=== PATIENT | female | born 1950 | race Caucasian/White ===

== ENCOUNTER → 2020-09-21 08:19 | Outpatient (CLI) | payer MEDICARE, SELFPAY ==
[2020-09-22 01:38] LABS: COVID19 Sendout Not Detected (Not Detect)
== END ==
PROVIDERS: Visit Provider Physician Assistant
DX: Z11.59 Encounter for screening for other viral diseases (principal)
CPT/HCPCS: 87635

== ENCOUNTER 2020-09-24 06:12 | Inpatient (IN) | payer MEDICARE, SELFPAY ==
[2020-09-18 09:43] VITALS: BMI 27.1
[2020-09-24] VITALS (24 sets, daily range): BP systolic 99–131; BP diastolic 56–83; PULSE 93–122; RESP 13–20; TEMP 36.2–37.5; O2SAT 95–99; BMI 25.5
--- NOTE | 2020-09-24 | PATH_ITS ---
[facility] Accession Number: [id number] . 01 Material submitted: . colon - PORTION TRANSVERSE COLON . 01 Clinical history: . LAPAROSCOPICALLY ASSISTED COLECTOMY . 02 Diagnosis: Transverse Colon, Segmental Resection: Segment of colon with tubular adenoma, 0.7 cm in greatest dimension; please see comment. Single diverticulum present. Tubular adenoma free of closest margin by at least 0.7 cm. No evidence of malignancy. MRV 09/26/2020 1338 Local . 02 Comment: The mucosa overlying the area of tattooing consists predominantly of benign colonic mucosa with prominent/redundant mucosal folds. That said, a 0.7 cm tubular adenoma is present within the specimen, and is free of the closest margin by at least 0.7 cm. There is no evidence of high-grade dysplasia or malignancy. . 02 Electronically signed: . Colin Schmidt MD, PhD, Pathologist NPI- [id number] . 01 Gross description: . The specimen is received in formalin, labeled portion transverse colon and consists of a previously opened 4.0 cm in length x 2.5 cm in diameter portion of colon with two stapled margins. The serosa is eddy-pink and focally black and smooth. There is a moderate amount of attached omentum and mesenteric adipose tissue. Opening reveals a 2.0 x 1.5 cm area of black tattooing located 0.5 cm from one stapled margin and 1.0 cm from the opposing stapled margin (blue). The remaining mucosa is eddy-pink with normal mucosal folds. The wall thickness measures 0.2 cm. No lymph nodes are identified within the attached adipose tissue. Medical Insurance Verifier sections are submitted. . A1 - Stapled margin (blue and black), procurement representative perpendicular sections. A2-A5 - Area of tattooing, entirely submitted (with candidate diverticulum in A5). ([id number]) /[facility] 09/25/2020 1618 Local . 02 Pathologist provided ICD-10: D12.3 . 02 CPT . 580677 Performed at: 01 [facility] [address] [id number] MD Cong Quintero MD Phone: [phone] Performed at: 02 [facility] [address] [place] [id number] MD Rosalina Granados MD Phone: [phone]
[2020-09-24] MEDS: LACTATED RINGERS 1,000 ML 42 ML IV ×2 (07:29→09:15)
[2020-09-24] MEDS: INSULIN REGULAR 100 UNIT/ML 3 ML VIAL IV (07:43)
--- NOTE | 2020-09-24 07:44 | PM.PREOP ---
Pre-operative Note COVID-19 COVID-19 status: Negative Result date/Date tested (Pos, Neg/Pending): 09/21/20 Interval Note History & Physical reviewed/Exam performed by Physician: Yes Changes to H&P: Yes H&P completed within 30 days and has changed as indicated here:: glucose preop 254. given insulin
[2020-09-24] MEDS: PIPERACILLIN-TAZO 3.375 GM/50 ML FROZ.PIGGY IV (07:56)
--- NOTE | 2020-09-24 08:54 | SUR.OPER ---
Lithotomy on padded OR bed. [place] Pad Positioner under torso. Head on pillow, arms on padded arm boards <90 degrees abduction. Legs secured in padded yellow fins stirrups.
[2020-09-24] MEDS: BUPIVACAINE 0.5% W/ EPI (PF) 30 ML VIAL INJ (09:02)
--- NOTE | 2020-09-24 09:02 | PM.PROC.1 ---
Procedures Date/Time Date of procedure: 09/24/20 Time of procedure: 08:00 General Procedure description: Thoracic epidural placement for transverse colectomy post-op pain control requested by general surgeon, Dr. Leonard. Patient was put on ASA monitoring. Positioned in sitting position. Given 2mg versed, 50mcg fentanyl. Skin prepped with chlorhexidine and allowed to fully dry. Skin wheal with 1% lidocaine made at T8-9 interspace. Using 18 ga Touhy needle and low resistance saline syringe, epidural space was located at 4cm deep to skin. Catheter threaded easily without parathesias. Catheter placed to 9.5 cm at skin. After negative aspiration, test dose of 3ml 1.5% lidocaine with epi was given, no reaction. Tegaderm used to secure catheter. Procedure was well tolerated.
--- NOTE | 2020-09-24 09:39 | SUR.OPER ---
CBG rechecked at [address] Barber = 147.
--- NOTE | 2020-09-24 10:05 | SUR.OPER ---
CBG recheck at 1005 = 144. Dr. Barber notified.
--- NOTE | 2020-09-24 11:10 | SUR.PHASEI ---
Report called to CORRINE Britt on floor. Pt ready to transfer upstairs
--- NOTE | 2020-09-24 11:13 | SUR.PHASEI ---
150 yellow slightly cloudy urine removed from vega
--- NOTE | 2020-09-24 11:30 | SUR.PHASEI ---
Pt transferred to room 226 in stable condition with no c/o and handoff in room to CORRINE Britt
[2020-09-24] MEDS: LACTATED RINGERS 1,000 ML 125 ML IV ×2 (12:12→19:22)
--- NOTE | 2020-09-24 12:46 | PM.OP.1 ---
Operative Date/Time/Diagnoses Date of procedure: 09/24/20 Time of procedure: 11:06 Pre-op diagnosis: Neoplasm transverse colon biopsy consistent with an adenoma Post-op diagnosis: same Procedure & Clinicians Procedure: Laparoscopic transverse colectomy with colo colo anastomosis Same procedure as scheduled: Yes Indications: Patient with a multiple E recurrence adenoma referred for resection of the portion of the colon containing the adenoma Surgeon: Rodolfo Leonard Web Applications Administrator: Aaron Moctezuma Anesthesia Type: General Operative Notes Findings: Broad-based polyp in the specimen. Inked colon removed. Closure Type: primary Specimen(s): other (Colon) Prosthetic devices, grafts, tissues, transplants, or devices: None Applied: catheter (Epidural catheter and Kwon catheter) Estimated Blood Loss (mL): 15 Blood products transfused: none Procedure in detail: Patient was placed supine on the operating room table and underwent general endotracheal anesthesia. She was placed in low lithotomy with the Kwon insertion. She was prepped and draped in the usual fashion. Small incision was made above the umbilicus and carried down under direct vision in the peritoneal cavity. And thus on cannula was inserted. Two additional ports were placed 1 in left upper abdomen and 1 in the right mid to lower abdomen. The inked colon was apparent on casual visualization and the abdomen. I dissected the gastrocolic omentum from the segment of the transverse colon containing the inked material. The omentum was released inferior in part. This mobilized the colon well enough to bring it toward the umbilicus. Small incision was then made above the umbilicus and a small [place] wound protector inserted. The colon was easily delivered into the wound. A portion of omentum was removed. I chose proximal and distal margins to include the inked portion of the colon. The lesion was actually palpable in the transverse colon. Using a MUNIRA I transected the colon proximal and distal and removed the specimen. It contained the abnormality. A 2 layer anastomosis was then created with an outer layer of seromuscular silk and inner layer of full-thickness 3 0 Vicryl in a classic [place] running suture line. The lumen was palpably patent and there was no leak on testing. The colon was returned to the abdomen and the abdomen irrigated and suctioned free of fluid. The fascia was closed with a running number 0 0 PDS double stranded material and occasional [id number] 0 Vicryl. The wounds were all irrigated. The subcu was closed with interrupted 3 0 Vicryl in the midline incision and the skin was closed running 4 0 Vicryl subcuticular stitch and Steri-Strips. Four 0 Vicryl subcuticular stitches were used to close the remaining 5 mm port sites along with Steri-Strips. Dressing was applied and the patient was awakened and extubated taken to recovery area in good condition. An epidural catheter had been placed prior to the operation for pain control postoperatively. Complications: none Post-operative Condition: stable Disposition: PACU Plan for aftercare: Admit
--- NOTE | 2020-09-24 15:18 | PC.NURSE ---
initial assessment at 1130 upon arrival to floor- epidural intact and cdi/ 6mls q h and pt declining pain- right leg slower to + cms than left but pt able to stand to bsc for bm ( incontinent initiailly) -- at that time epidural drsg appears damp and sero-sang drainage noted- tympanic bt's x 4 tolerating ice chips and sips of liquid- does have order to advance diet as tolerated- lr at 125cc/h - spouse at bedside
[2020-09-24] MEDS: INSULIN ASPART 100 UNIT/ML INSULN PEN SUBCUT (18:29)
[2020-09-24] MEDS: POTASSIUM CHLORIDE 20 MEQ TAB PO (20:26)
[2020-09-24] MEDS: GABAPENTIN 300 MG CAPSULE PO (20:26)
[2020-09-24] MEDS: FENT 2MCG/ML BUPIV 0.125% EPI 200 MCG/100 ML PLAST..BAG 6 MCG EPIDURAL (20:36)
[2020-09-25 00:40] VITALS: BP 105/55; PULSE 77; RESP 16; TEMP 36.8; O2SAT 96
[2020-09-25] MEDS: LACTATED RINGERS 1,000 ML 125 ML IV ×3 (03:09→19:32)
[2020-09-25 04:54] VITALS: BP 95/50; PULSE 73; RESP 16; TEMP 36.7; O2SAT 95
[2020-09-25 05:20] LABS: Basophils Absolute Auto 0 /uL (0-100); Basophils Percent Auto 0.1 % (0-2); Eosinophils Absolute Auto 0 /uL (0-450); Hematocrit 37.8 % (36-46); Hemoglobin 13.3 g/dL (12.0-16.0); Lymphocytes Absolute Auto 1300 /uL (1100-4500); Lymphocytes Percent Auto 14.1 % (25-40); Mean Corpuscular HGB Conc 35.2 % (30-36); Mean Corpuscular Hemoglobin 33.1 PG (26-34); Mean Corpuscular Volume 94.1 fL (80-100); Monocytes Absolute Auto 700 /uL (0-900); Monocytes Percent Auto 7.7 % (3-14); Neutrophils Absolute Auto 7100 /uL (1500-7000); Neutrophils Percent Auto 78.1 % (50-75); Platelet Count 41 X10^3/uL (150-400); Red Blood Cell Count 4.02 X10^6/uL (4.0-5.2); Red Cell Distribution Width 13.6 % (11.6-14.8); White Blood Cell Count 9.1 X10^3/uL (4.5-11.0)
[2020-09-25 05:24] LABS: Alanine Aminotransferase 29 IU/L (<35); Albumin 3.4 g/dL (3.5-5.0); Albumin Globulin Ratio 1.4 (1.0-2.8); Alkaline Phosphatase 41 U/L (38-126); Aspartate Aminotransferase 35 IU/L (14-36); Bilirubin Total 0.6 mg/dL (0.2-1.3); Blood Urea Nitrogen 11 mg/dL (7-17); Calcium 8.8 mg/dL (8.4-10.2); Carbon Dioxide 27 mmol/L (22-32); Chloride 104 mmol/L (98-107); Estimated Glomerular Filt Rate > 60.0 mL/min (>60); Globulin 2.5 g/dL (1.7-4.1); Glucose 189 mg/dL (80-110); HEMOLYSIS < 15 (0-50); Potassium 3.5 mmol/L (3.4-5.1); Sodium 136 mmol/L (137-145); Total Protein 5.9 g/dL (6.3-8.2)
[2020-09-25 05:28] LABS: Add Manual Diff / Slide Review SLIDE REVIEW
[2020-09-25 05:38] LABS: Platelet Estimate Decreased on smear; RBC Morphology Normal Morphology
--- NOTE | 2020-09-25 06:38 | PC.NURSE ---
Shoe Packer Note-Patient dozed intermittently, A/Ox4, a little nervous early in shift, but calm by morning. Fentanyl/bupivacaine epidural infusing at 6ml/hr with CORPORATE STRATEGY ANALYST demand which she did not use. Denies pain, but starting to feel some movement in am. Dermatone T6 on left, T8 on right, can lift both legs. Has been incontinent 4 small-moderate liquid brown stools, tolerating sips water overnight without nausea. 1500ml clear UOP in Kwon. Lowest BP 93/50(66), other VSS, denies lightheadedness.
[2020-09-25 08:00] VITALS: BP 97/55; PULSE 72; RESP 16; TEMP 36.6; O2SAT 97
[2020-09-25] MEDS: INSULIN ASPART 100 UNIT/ML INSULN PEN SUBCUT ×3 (08:55→16:51)
[2020-09-25] MEDS: glipiZIDE XL 5 MG TAB PO (08:57)
[2020-09-25] MEDS: POTASSIUM CHLORIDE 20 MEQ TAB PO ×2 (09:00→21:19)
[2020-09-25] MEDS: GABAPENTIN 300 MG CAPSULE PO ×2 (09:00→21:19)
[2020-09-25] MEDS: TRIAMTERENE/HCTZ 37.5/25 TABLET 1 CAP PO (09:03)
--- NOTE | 2020-09-25 11:52 | CM.DANOTE ---
DCP: Case received, EMR reviewed and met with patient. Introduced self and role. Was able to obtain information from patient regarding he baseline activity status prior to hospitalization. DCP assessment completed with information currently available. Patient is a 69 year old female who admitted yesterday morning to the care of the surgical team. PCP: Dr. Call. Payer: confirmed: Medicare/[employer]. Patient came to the hospital for a surgical procedure. She had a laparoscopic colectomy. Patient has had neoplasm transverse colon biopsy. Met with patient in her room. She is alert and oriented. She was sitting up in her bed. She is independent at baseline. She resides in [facility] with her spouse, Maciel. P: DCP to continue to follow. Patient should be able to discharge home when she is medically stable. Helen Gardner RN/Summer Internship
[2020-09-25 12:00] VITALS: BP 101/62; PULSE 79; RESP 20; TEMP 36.6; O2SAT 99
[2020-09-25] MEDS: FENT 2MCG/ML BUPIV 0.125% EPI 200 MCG/100 ML PLAST..BAG 6 MCG EPIDURAL (13:03)
--- NOTE | 2020-09-25 13:15 | PC.NURSE ---
pt reports having no pain at all- epidural patent at 6ml/h pt incont of stool x 1 and then more on the bsc early in shift- fully bathed and then ambulated entire length of hospital corridor, active bt's - abd incision cdi, vega patent with pale clear urine - LR continues at 125cc/h and pt up in chair since walk - tolerating clear liquids and anxious for increased diet
[2020-09-25 15:40] VITALS: BP 105/57; PULSE 81; RESP 18; TEMP 36.7; O2SAT 97
--- NOTE | 2020-09-25 17:41 | PM.PNPO.1 ---
Subjective Subjective Date Patient Seen: 09/25/20 Time Patient Seen: 17:41 Interval history: The patient feels great. Not having any but the slightest discomfort. Starting to feel things on her abdomen. Epidural remains in place. She has been up walking twice and hopes to get up 1 more time. She has been out of her bed and in a chair r for over 5 hours today. Exam Vital Signs (past 8 hours): - 09/25/20 12:00 09/25/20 15:40 Temperature 97.9 F 98.0 F Pulse Rate 79 81 Respiratory Rate 20 18 Blood Pressure 101/62 105/57 L Pulse Oximetry 99 97 Oxygen Delivery Method Room Air Oxygen Flow Rate 0 Narrative Exam Narrative: Lungs very good effort. Abdomen soft no unusual tenderness no redness dressing is intact Objective Labs Result Diagrams: 09/25/20 04:49 09/25/20 04:49 Labs: Laboratory Results - last 24 hr 09/25/20 09/25/20 04:49 04:49 WBC 9.1 RBC 4.02 Hgb 13.3 Hct 37.8 MCV 94.1 MCH 33.1 MCHC 35.2 RDW 13.6 Plt Count 41 L Neut % (Auto) 78.1 H Lymph % (Auto) 14.1 L [place] % (Auto) 7.7 Eos % (Auto) 0.0 L Baso % (Auto) 0.1 Neut # (Auto) 7100 H Lymph # (Auto) 1300 [place] # (Auto) 700 Eos # (Auto) 0 Baso # (Auto) 0 Platelet Estimate Decreased on smear RBC Morphology Normal morphology Sodium 136 L Potassium 3.5 Chloride 104 Carbon Dioxide 27 BUN 11 Creatinine 0.61 Estimated GFR > 60.0 BUN/Creatinine Ratio 18.0 Glucose 189 H Calcium 8.8 Total Bilirubin 0.6 AST 35 ALT 29 Alkaline Phosphatase 41 Total Protein 5.9 L Albumin 3.4 L Globulin 2.5 Albumin/Globulin Ratio 1.4 Assessment & Plan Post-op Postoperative Procedures: Procedures Operation Date: 09/24/20 07:45 Actual Procedures Side Surgeon p Laparoscopic Tranverse Colon Resection Rodolfo Leonard MD Postoperative status: doing well Postoperative plan narrative: Will advance diet. Encourage out of bed. Deep breathing.
[2020-09-25 21:00] VITALS: BP 103/52; PULSE 77; RESP 18; TEMP 36.7; O2SAT 98
[2020-09-26] VITALS (7 sets, daily range): BP systolic 115–137; BP diastolic 58–68; PULSE 79–94; RESP 16–20; TEMP 35.8–37.3; O2SAT 96–99
[2020-09-26] MEDS: LACTATED RINGERS 1,000 ML 125 ML IV (03:24)
[2020-09-26] MEDS: FENT 2MCG/ML BUPIV 0.125% EPI 200 MCG/100 ML PLAST..BAG 6 MCG EPIDURAL (04:41)
[2020-09-26 08:25] LABS: Add Manual Diff / Slide Review NO; Basophils Absolute Auto 0 /uL (0-100); Basophils Percent Auto 0.6 % (0-2); Eosinophils Absolute Auto 0 /uL (0-450); Eosinophils Percent Auto 0.1 % (2-4); Hematocrit 38.3 % (36-46); Hemoglobin 13.1 g/dL (12.0-16.0); Lymphocytes Absolute Auto 2600 /uL (1100-4500); Lymphocytes Percent Auto 37.9 % (25-40); Mean Corpuscular HGB Conc 34.2 % (30-36); Mean Corpuscular Hemoglobin 32.7 PG (26-34); Mean Corpuscular Volume 95.8 fL (80-100); Monocytes Absolute Auto 500 /uL (0-900); Monocytes Percent Auto 7.2 % (3-14); Neutrophils Absolute Auto 3700 /uL (1500-7000); Neutrophils Percent Auto 54.2 % (50-75); Platelet Count 38 X10^3/uL (150-400); Red Cell Distribution Width 13.8 % (11.6-14.8); White Blood Cell Count 6.9 X10^3/uL (4.5-11.0)
[2020-09-26 08:35] LABS: Alanine Aminotransferase 27 IU/L (<35); Albumin 3.5 g/dL (3.5-5.0); Albumin Globulin Ratio 1.4 (1.0-2.8); Alkaline Phosphatase 45 U/L (38-126); Aspartate Aminotransferase 39 IU/L (14-36); BUN Creatinine Ratio 15.8 (6-22); Bilirubin Total 0.6 mg/dL (0.2-1.3); Blood Urea Nitrogen 9 mg/dL (7-17); Calcium 8.9 mg/dL (8.4-10.2); Carbon Dioxide 34 mmol/L (22-32); Chloride 102 mmol/L (98-107); Estimated Glomerular Filt Rate > 60.0 mL/min (>60); Globulin 2.5 g/dL (1.7-4.1); Glucose 105 mg/dL (80-110); HEMOLYSIS < 15 (0-50); Potassium 3.4 mmol/L (3.4-5.1); Sodium 137 mmol/L (137-145)
[2020-09-26] MEDS: glipiZIDE 5 MG TABLET PO ×2 (08:43→16:41)
[2020-09-26] MEDS: GABAPENTIN 300 MG CAPSULE PO ×2 (08:51→20:24)
[2020-09-26] MEDS: TRIAMTERENE/HCTZ 37.5/25 TABLET 1 CAP PO (08:52)
[2020-09-26] MEDS: POTASSIUM CHLORIDE 20 MEQ TAB PO ×2 (08:52→20:24)
[2020-09-26 09:01] LABS: Anisocytosis 1+
--- NOTE | 2020-09-26 14:14 | P.PN_ITS ---
Subjective Subjective Date Patient Seen: 09/26/20 Time Patient Seen: 14:14 Interval history: The patient feels very well. She has been having some bowel movements. Passing some flatus. Tolerating p.o. thus far. Exam Vital Signs (past 8 hours): - 09/26/20 08:00 09/26/20 12:00 Temperature 97.5 F L 98.0 F Pulse Rate 87 79 Respiratory Rate 16 20 Blood Pressure 126/61 116/58 L Pulse Oximetry 98 96 Oxygen Delivery Method Room Air Oxygen Flow Rate 0 Narrative Exam Narrative: Lungs are clear to auscultation. No rales or rhonchi heart regular rate and rhythm without murmur gallop abdomen is scaphoid soft nontender. Incisions are intact. No cellulitis. Objective Labs Result Diagrams: 09/26/20 08:04 09/26/20 08:04 Labs: Laboratory Results - last 24 hr 09/26/20 09/26/20 08:04 08:04 WBC 6.9 RBC 4.00 Hgb 13.1 Hct 38.3 MCV 95.8 MCH 32.7 MCHC 34.2 RDW 13.8 Plt Count 38 L Neut % (Auto) 54.2 D Lymph % (Auto) 37.9 D [place] % (Auto) 7.2 Eos % (Auto) 0.1 L Baso % (Auto) 0.6 Neut # (Auto) 3700 Lymph # (Auto) 2600 [place] # (Auto) 500 Eos # (Auto) 0 Baso # (Auto) 0 RBC Morphology Not Reportable Anisocytosis 1+ H Sodium 137 Potassium 3.4 Chloride 102 Carbon Dioxide 34 H BUN 9 Creatinine 0.57 Estimated GFR > 60.0 BUN/Creatinine Ratio 15.8 Glucose 105 Calcium 8.9 Total Bilirubin 0.6 AST 39 H ALT 27 Alkaline Phosphatase 45 Total Protein 6.0 L Albumin 3.5 Globulin 2.5 Albumin/Globulin Ratio 1.4 Assessment & Plan Post-op Postoperative Procedures: Procedures Operation Date: 09/24/20 07:45 Actual Procedures Side Surgeon p Laparoscopic Tranverse Colon Resection Rodolfo Leonard MD Postoperative status narrative: The patient is doing very well thus far. I would like to get her epidural and Kwon catheter out. This will improve her ambulation. Will allow her to shower. Patient was noted to be thrombocytopenic. This was [place] [address]. Repeat today is 38,000. I contacted the patient's primary care provider office and they provided me with her most recent CBC. She apparently has a chronic thrombocytopenia. [place] [address]. The cause is uncertain. I talked to her about the two broad categories of sequestration by her body verses lack of production. Postoperative plan narrative: DC epidural and thus then the Kwon. Back off on her IV fluids. Hold DVT prophylaxis due to thrombocytopenia. Refer to hematology once discharged as I suspect she will need a bone marrow biopsy. Hold all anti-platelet agents/ NSAIA.
--- NOTE | 2020-09-26 14:16 | PC.NURSE ---
AM shift Pt is reporting minimal pain to ABD 2/10 with movement. Vega patient with clear yellow urine. Epidural infusing at 6mls/hr with demand dosing available but not used at all this shift. Pt is eager to get vega and cath out to improve on ambulation CBG AC HS, no nausea or discomfort this shift. Up to BSC 1PA, liquid stooling x2. Flatus + Advancing diet as tolerated. Ambulating in hallway x2 this shift.
[2020-09-26] MEDS: INSULIN ASPART 100 UNIT/ML INSULN PEN SUBCUT ×2 (17:18→20:32)
[2020-09-26] MEDS: OXYCODONE/ACETAMINOPHEN 5/325 TABLET 2 TAB PO (17:23)
[2020-09-26] MEDS: DOCUSATE 100 MG CAPSULE PO (20:24)
[2020-09-26] MEDS: ACETAMINOPHEN 325 MG TABLET 650 MG PO (20:25)
[2020-09-26] MEDS: SENNOSIDES 8.6 MG TABLET 17.2 MG PO (20:25)
[2020-09-27] VITALS (8 sets, daily range): BP systolic 120–140; BP diastolic 61–78; PULSE 79–99; RESP 16–20; TEMP 35.9–36.5; O2SAT 95–97
[2020-09-27] MEDS: OXYCODONE/ACETAMINOPHEN 5/325 TABLET 2 TAB PO ×3 (02:46→16:20)
--- NOTE | 2020-09-27 06:05 | PC.NURSE ---
Pain well controlled on PO medication. Tolerating full liquid diet. Slept well overnight. Report to CORRINE Ribeiro. Patient transferred to room 202 in [facility].
--- NOTE | 2020-09-27 06:44 | PC.NURSE ---
Patient had a shower, new dressing applied to abdomen, island barrier.
[2020-09-27] MEDS: ACETAMINOPHEN 325 MG TABLET 650 MG PO ×2 (07:29→23:46)
[2020-09-27] MEDS: glipiZIDE 5 MG TABLET PO ×2 (07:30→16:16)
[2020-09-27] MEDS: POTASSIUM CHLORIDE 20 MEQ TAB PO ×2 (09:31→21:05)
[2020-09-27] MEDS: GABAPENTIN 300 MG CAPSULE PO ×2 (09:31→21:05)
[2020-09-27] MEDS: DOCUSATE 100 MG CAPSULE PO ×2 (09:32→21:05)
[2020-09-27] MEDS: TRIAMTERENE/HCTZ 37.5/25 TABLET 1 CAP PO (09:37)
[2020-09-27] MEDS: INSULIN ASPART 100 UNIT/ML INSULN PEN SUBCUT ×2 (12:25→16:55)
--- NOTE | 2020-09-27 14:30 | DI.RAD.S_ITS ---
PROCEDURE: XR ACUTE ABDOMEN SERIES INDICATIONS: post colon resection transverse. assess bowel gas pattern TECHNIQUE: One view chest and two views of the abdomen were acquired. COMPARISON: None. FINDINGS: Surgical changes and devices: None. Chest: Lungs are clear. The cardiac contours are within normal limits. The aorta demonstrates calcification and tortuosity. No pleural effusions. No pneumoperitoneum. Abdomen: Bowel gas pattern is normal. A calcified uterine fibroid can be seen. Visualized solid organ contours appear normal. Bones: No suspicious bony lesions. Age-appropriate bony degenerative changes are seen. IMPRESSION: A nonobstructive bowel gas pattern is seen. If clinically appropriate, please consider a repeat plain film study or a dedicated CT of the abdomen and pelvis, if the patient's symptoms persist or worsen. Dictated by: Marck Armstrong M.D. on 09/27/2020 at 15:35 Approved by: Marck Armstrong M.D. on 09/27/2020 at 15:36
[2020-09-27] MEDS: BISACODYL 10 MG SUPP PR (16:16)
[2020-09-27] MEDS: METOCLOPRAMIDE 10 MG/2 ML INJ IV (18:13)
[2020-09-27] MEDS: SENNOSIDES 8.6 MG TABLET 17.2 MG PO (21:05)
--- NOTE | 2020-09-27 21:13 | PM.PNPO.1 ---
Subjective Subjective Date Patient Seen: 09/27/20 Time Patient Seen: 12:00 Interval history: The patient is a woman who had a transverse colon resection with primary anastomosis. She has had multiple small bowel movements but nothing large. She is passing flatus. She feels fine. Exam Vital Signs (past 8 hours): - 09/27/20 16:07 09/27/20 19:47 Temperature 97.4 F L 97.7 F Pulse Rate 84 99 H Respiratory Rate 18 16 Blood Pressure 136/76 122/77 Pulse Oximetry 97 95 Oxygen Delivery Method Room Air Oxygen Flow Rate 0 Narrative Exam Narrative: No apparent distress. Lungs are clear to auscultation. No rales or rhonchi. Heart regular rate and rhythm without murmur gallop. Abdomen is little distended in the upper abdomen. Otherwise soft. Incisions are intact. No cellulitis. Objective Imaging Abdominal x-ray: My impression: Patient has a fairly normal gas pattern except she has a dilated stomach. The right colon has more gas than the left suggesting there may be some impedance across the anastomosis. However it is not particularly distended. Labs Result Diagrams: 09/26/20 08:04 09/26/20 08:04 Assessment & Plan Post-op Postoperative Procedures: Procedures Operation Date: 09/24/20 07:45 Actual Procedures Side Surgeon p Laparoscopic Tranverse Colon Resection Rodolfo Leonard MD Postoperative status narrative: Will start IV fluids again. Dul co lax suppository. Observe. Postoperative plan narrative: May need to back off on her diet for bowel function does not return. Chronic thrombocytopenia. Will avoid all medications including DVT prophylaxis with medication that might inhibit platelet function or increased risk of bleeding
[2020-09-27] MEDS: LACTATED RINGERS 1,000 ML 84 ML IV (21:36)
--- NOTE | 2020-09-27 22:05 | PC.NURSE ---
Has passed multiple small stools and one medium sized stool on shift.
[2020-09-28 00:03] VITALS: BP 137/76; PULSE 88; RESP 20; TEMP 36.1; O2SAT 95
[2020-09-28 04:14] VITALS: BP 144/84; PULSE 98; RESP 18; TEMP 36.1; O2SAT 95
--- NOTE | 2020-09-28 05:58 | PC.NURSE ---
Patient ambulated in the hallway this shift with a staff member. Did well.
[2020-09-28] MEDS: ACETAMINOPHEN 325 MG TABLET 650 MG PO (06:29)
[2020-09-28] MEDS: glipiZIDE 5 MG TABLET PO (06:30)
[2020-09-28 08:05] VITALS: BP 122/77; PULSE 97; RESP 16; TEMP 36.6; O2SAT 94
[2020-09-28] MEDS: INSULIN ASPART 100 UNIT/ML INSULN PEN SUBCUT (08:14)
[2020-09-28] MEDS: GABAPENTIN 300 MG CAPSULE PO (08:15)
[2020-09-28] MEDS: DOCUSATE 100 MG CAPSULE PO (08:15)
[2020-09-28] MEDS: POTASSIUM CHLORIDE 20 MEQ TAB PO (08:15)
[2020-09-28] MEDS: TRIAMTERENE/HCTZ 37.5/25 TABLET 1 CAP PO (08:15)
[2020-09-28] MEDS: BISACODYL 10 MG SUPP PR (09:14)
--- NOTE | 2020-09-28 11:05 | PC.NURSE ---
Addendum entered by Aashish Olsen R.N. 09/28/20 11:39: SPOUSE PRESENT FOR DC HOME INSTRUCTIONS. PATIENT AND SPOUSE CONFIRM UNDERSTANDING. THEY WILL KEEP F/U APPT SCHEDULED. LEFT BY WC WITH ALL BELONGINGS AND PAPERWORK WITH CERTIFIED OPHTHALMIC MEDICAL TECHNICIAN ESCORT WITHOUT S/SX'S OF DISTRESS. Original Note: DAYSHIFT PATIENT HAD LG SOFT FORMED BM AFTER SUPPOSITORY THIS AM, DENIES ABD PAIN, DENIES N/V. ATE WELL. AMBULATED IN HALLS. EAGER TO DC HOME. SURGEON HAS ROUNDED.
--- NOTE | 2020-09-28 11:18 | PM.DS.1 ---
History of Present Illness History of Present Illness Date Patient Seen: 09/28/20 Time Patient Seen: 11:19 Chief complaint: Laparoscopically Assisted Colectomy Narrative: 69-year-old woman admitted to the hospital for elective laparoscopic assisted transverse colectomy. She has a recurrent adenoma within the transverse colon. Discharge Providers Provider Date of admission: 09/24/20 06:12 Discharge Date: 09/28/20 Primary care physician: Jordan Call MD Consults: 09/24/20 11:40 Consult to Discharge Planning Routine Comment: Discharge provider: Aaron Moctezuma MD Summary Hospital Course Discharge Diagnosis: Laparoscopic colectomy Hospital Course: She underwent a laparoscopic-assisted transverse colectomy 09/24/2020. She recovered from the operation appropriately had return of bowel function and her pain was well controlled. On the date of discharge she has return of bowel function tolerant of a diet her pain is well controlled vital signs within normal limits Status at Discharge Cognitive/behavioral status at discharge: oriented Exam Vital Signs (past 8 hours): - 09/28/20 04:14 09/28/20 08:05 Temperature 96.9 F L 97.9 F Pulse Rate 98 H 97 H Respiratory Rate 18 16 Blood Pressure 144/84 H 122/77 Pulse Oximetry 95 94 Oxygen Delivery Method Room Air Oxygen Flow Rate 0 Narrative Exam Narrative: General adult female alert oriented no acute distress Abdomen midline incision clean dry intact with Steri-Strips appropriately tender to palpation Extremities warm well perfused Objective Labs Result Diagrams: 09/26/20 08:04 09/26/20 08:04 Discharge Plan Discharge Plan Patient Disposition: Home Discharge orders & Medications Prescriptions: New acetaminophen [Tylenol] 325 mg capsule 650 mg PO QID PRN (Reason: pain) Qty: 60 RF: 0 Continued estradiol 0.5 MG tablet 0.25 mg PO DAILY Qty: 0 RF: 0 triamterene-hydrochlorothiazid 37.5-25 mg capsule 1 cap PO DAILY RF: 0 lovastatin 20 mg tablet 20 mg PO DAILY RF: 0 meloxicam 7.5 mg tablet 7.5 mg PO BID RF: 0 glipizide 5 mg tablet 5 mg PO DAILY RF: 0 Centrum Silver Women 8 mg iron-400 mcg-300 mcg tablet 1 tab PO DAILY RF: 0 calcium carbonate [Calcium 500] 500 mg calcium (1,250 mg) tablet 500 mg PO BID RF: 0 medroxyprogesterone 2.5 mg tablet 2.5 mg PO DAILY RF: 0 erythromycin 500 mg tablet 1,000 mg PO TID Qty: 6 RF: 0 neomycin 500 mg tablet 1 gram PO TID Qty: 6 RF: 0 potassium chloride 10 mEq Capsule, Extended Release 20 meq PO BID RF: 0 Follow up/Referrals: Jordan Call MD [Primary Care Provider] - Rodolfo Leonard MD [Physician] - 10/10/20 2:15 pm (please arrive 15 minutes prior to your scheduled appointment time) Diet/Activity/Treatments Diet: Regular Activity: No lifting >20 lbs x 6 weeks. Walking only for exercise for 6 [address] while taking narcotics. Skin/Wound/Dressing Care Report to your healthcare provider any signs of infection, such as:: chills, fever, increased pain, unusual drainage and unusual redness Visit Report/Discharge Packet Instructions: DI for Colectomy, Island Surgeons: Wound Care Visit Report Forms: Patient Portal/API, Stroke Signs & Symptoms Discharge Data Primary Care Provider: Jordan Call
--- NOTE | 2020-09-28 13:16 | CM.DPC ---
DCP: continued: Case received and discussed in Team Rounds. Prior plan for d/c to home when stable for same was noted. A check in now shows that Dr. Moctezuma was here, ok's pt for d/c and she left for home late morning in company of her .
== END 2020-09-28 11:41 | disposition home or self-care (01) | DRG 331 ==
LOC: AC 09:43 → ICU 13:28 → AC 09-28 11:03 → ICU 10-01 11:55
PROVIDERS: Admitting Provider Specialist; PCP Family Medicine; Referring Provider Family Medicine; Visit Provider Specialist
PROC: 0DTE0ZZ Resection of Large Intestine, Open Approach (ICD-10-PCS; principal; 2020-09-24 07:45)
DX: D12.3 Benign neoplasm of transverse colon (principal); D69.6 Thrombocytopenia, unspecified; E11.9 Type 2 diabetes mellitus without complications; Z79.84 Long term (current) use of oral hypoglycemic drugs; I10 Essential (primary) hypertension; Z11.59 Encounter for screening for other viral diseases
CPT/HCPCS: 36415; 44204; 74022; 80053; 82962; 85025; 87635; 87797; J1100; J2250; J2405; J2543; J2704; J2765; J3010

== ENCOUNTER 2024-02-10 07:22 | Day surgery (SDC) | payer MEDICARE, SELFPAY ==
[2020-09-28 11:09] VITALS: BMI 25.5
--- NOTE | 2024-02-10 | PATH_ITS ---
[facility] Accession Number: [id number] No. of containers..01 Tissue . 01 Material submitted: . colon - ASCENDING COLON POLYP . 01 Diagnosis: ASCENDING COLON POLYP: Tubular adenoma. . MRV 02/12/2024 1532 Local . 01 Electronically signed: . Colin Schmidt MD, PhD, Pathologist NPI- [id number] . 01 Gross description: . ASCENDING COLON POLYP: Received in formalin are 2 fragment(s) of eddy, soft tissue measuring 0.2 x 0.2 x 0.2 cm to 0.3 x 0.3 x 0.2 cm submitted entirely in 1 cassette(s) /MARGIE 02/11/2024 1913 Local . 01 Pathologist provided ICD-10: D12.2 . 01 CPT . 499766 Specimen Comment: A courtesy copy of this report has been sent to [phone] Performed at: 01 [facility] [address] [place] [address], [place], [place] [id number] MD Cong Quintero MD Phone: [phone]
[2024-02-10 07:59] VITALS: BP 136/88; PULSE 94; RESP 18; TEMP 36.6; O2SAT 100
[2024-02-10] MEDS: LACTATED RINGERS 1,000 ML 42 ML IV (08:09)
--- NOTE | 2024-02-10 08:34 | PM.HP.1 ---
History of Present Illness History of Present Illness Date Patient Seen: 02/10/24 Chief complaint: Colonoscopy Narrative: History of large colon polyps [facility] Medical History (Updated 09/18/20 @ 10:18 by Daysi Morrissey RN) Skin cancer Bilateral knee pain Arthritis Hx gestational diabetes Diverticulosis HLD (hyperlipidemia) HTN (hypertension) Ganglion cyst of dorsum of right wrist Diabetes Surgical History (Updated 09/18/20 @ 10:18 by Daysi Morrissey RN) Hx of dilation and curettage Hx of tonsillectomy Hx of arthroscopy of right knee S/P right unicompartmental knee replacement Hx of right breast biopsy (1998) Hx of rotator cuff surgery (10/09/11) History of bunionectomy Hx of section Family History Father Heart disease Mother Diabetes mellitus Sister Diabetes mellitus Brother Cancer Social History marital status: household members: spouse occupational status: previously employed Smoking Status: Never smoker alcohol intake: current Meds Home Medications and Allergies Home Medications Medication Instructions Recorded Confirmed Type estradiol 0.5 mg tablet 0.25 mg PO DAILY ##0 10/09/11 10/10/20 History calcium carbonate 500 mg calcium 500 mg PO BID 09/05/20 10/10/20 History (1,250 mg) tablet (Calcium 500) erythromycin 500 mg tablet 1,000 mg (2 x 500 mg) PO TID colon 09/05/20 10/10/20 Rx surgery #6 tabs glipizide 5 mg tablet 5 mg PO DAILY 09/05/20 10/10/20 History lovastatin 20 mg tablet 20 mg PO DAILY 09/05/20 10/10/20 History medroxyprogesterone 2.5 mg tablet 2.5 mg PO DAILY 09/05/20 10/10/20 History meloxicam 7.5 mg tablet 7.5 mg PO BID 09/05/20 10/10/20 History begdjghc-jkkn-ojgf 8 mg-folic 400 1 tab PO DAILY 09/05/20 10/10/20 History mcg-K 50 mcg-lutein 300 mcg tablet (Centrum Silver Women) neomycin 500 mg tablet 1 gram (2 x 500 mg) PO TID colon 09/05/20 10/10/20 Rx surgery 3 doses #6 tabs triamterene 37.5 1 cap PO DAILY 09/05/20 10/10/20 History mg-hydrochlorothiazide 25 mg capsule potassium chloride 10 mEq 20 meq PO BID 09/18/20 10/10/20 History capsule,extended release acetaminophen 325 mg capsule 650 mg (2 x 325 mg) PO QID PRN 09/28/20 10/10/20 Rx (Tylenol) pain #60 caps Allergies Allergy/AdvReac Type Severity Reaction Status Date / Time tetanus and diphtheria Allergy Mild SEVERE Verified 10/10/20 14:19 toxoids HEADACHE Exam Vital Signs (past 8 hours): - 02/10/24 07:59 Temperature 98 F Pulse Rate 94 H Respiratory Rate 18 Blood Pressure 136/88 Pulse Oximetry 100 Oxygen Delivery Method Room Air Oxygen Delivery Method Room Air Narrative Exam Narrative: Oropharynx free of lesions Chest clear to auscultation percussion Cardiac exam reveals no S3 or murmur Assessment & Plan Assessment & Plan narrative: History of large colon polyps need for final follow-up colonoscopy. Risks, benefits, alternatives have been explained. History of ITP with platelet count of 43 post infusion yesterday.
--- NOTE | 2024-02-10 08:35 | P.OP.COLON_ITS ---
Operative Date/Time/Diagnoses Date of procedure: 02/10/24 Pre-op diagnosis: See indication and findings Procedure & Clinicians Study performed: Colonoscopy Indications: History of large colon polyps Surgeon: Nell Fairchild Procedure Notes Procedure in detail: After informed consent was obtained the patient was placed in left lateral decubitus position. The video colonoscope was introduced the rectum slowly advanced cecum. Preparation was good. On slow withdrawal mucosa was carefully examined. The scope was removed. The patient tolerated procedure well. Blood loss none Complications none Sedation mac Findings 1. Moderate diverticulosis throughout the entire colon 2. Complex polyp or 2 polyps at the cecal lip. The largest was 1 x 3 and 0.5 cm and the other lobe for smaller 1 was 8 x 15 mm. The largest already had evidence of oozing blood before it was even touched. Please do hot biopsy for ceps to take a biopsy which bled mildly. Using the same forceps to take a hot biopsy still had some oozing but lasts. Removal was not performed. I will discuss these polyps with the patient and her . It may be easiest and safest for her to have a colonic resection for these polyps. If however she really would rather not have surgery performed we can have her see surgery for preprocedure consultation, again arranged for timed infusions, and get platelet infusions just before procedure. Cc Dr. Aviles
[2024-02-10 09:10] VITALS: BP 115/64; PULSE 88; RESP 20; TEMP 36.1; O2SAT 96
[2024-02-10 09:15] VITALS: BP 126/66; PULSE 89; RESP 20; O2SAT 96
[2024-02-10 09:20] VITALS: BP 128/67; PULSE 85; RESP 18; TEMP 36.1; O2SAT 99
[2024-02-10 09:25] VITALS: BP 127/72; PULSE 86; RESP 16; O2SAT 98
== END 2024-02-10 10:24 | disposition home or self-care (01) ==
PROVIDERS: PCP Family Medicine; Referring Provider Internal Medicine Gastroenterology; Visit Provider Internal Medicine Gastroenterology
PROC: 0DJD8ZZ Inspection of Lower Intestinal Tract, Via Natural or Artificial Opening Endoscopic (ICD-10-PCS; CPT 45378; principal; 2024-02-10 08:30)
DX: Z12.11 Encounter for screening for malignant neoplasm of colon (principal); Z86.010 Personal history of colon polyps; K57.30 Diverticulosis of large intestine without perforation or abscess without bleeding; D12.2 Benign neoplasm of ascending colon
CPT/HCPCS: 45384; J2704

== ENCOUNTER → 2024-05-16 09:48 | Outpatient (CLI) | payer MEDICARE, SELFPAY ==
[2020-09-28 11:09] VITALS: BMI 25.5
[2024-05-16 11:21] LABS: Add Manual Diff / Slide Review NO; Basophils Absolute Auto 0 /uL (0-100); Basophils Percent Auto 0.5 % (0-2); Eosinophils Absolute Auto 100 /uL (0-450); Hematocrit 40.9 % (36-46); Hemoglobin 14.2 g/dL (12.0-16.0); Lymphocytes Absolute Auto 1600 /uL (1100-4500); Lymphocytes Percent Auto 31.1 % (25-40); Mean Corpuscular HGB Conc 34.6 % (30-36); Mean Corpuscular Hemoglobin 32.9 PG (26-34); Monocytes Absolute Auto 400 /uL (0-900); Monocytes Percent Auto 8.4 % (3-14); Neutrophils Absolute Auto 3000 /uL (1500-7000); Platelet Count 60 X10^3/uL (150-400); Red Cell Distribution Width 14.9 % (11.6-14.8); White Blood Cell Count 5.2 X10^3/uL (4.5-11.0)
[2024-05-16 11:44] LABS: BUN Creatinine Ratio 27.7 (6-22); Blood Urea Nitrogen 23 mg/dL (7-17); Calcium 10.5 mg/dL (8.4-10.2); Carbon Dioxide 33 mmol/L (22-32); Chloride 99 mmol/L (98-107); Estimated Glomerular Filt Rate > 60 mL/min (>60); Glucose 310 mg/dL (80-110); HEMOLYSIS < 15 (0-50); Potassium 3.4 mmol/L (3.4-5.1); Sodium 136 mmol/L (137-145)
[2024-05-16 11:49] LABS: Hemoglobin A1C% w Est Avg Glu 6.4 % (4.0-6.0)
== END ==
LOC: LAB 09:50
PROVIDERS: PCP Family Medicine; Referring Provider Surgery; Visit Provider Surgery
DX: D49.0 Neoplasm of unspecified behavior of digestive system (principal)
CPT/HCPCS: 36415; 80048; 83036; 85025; 86850; 86900; 86901

== ENCOUNTER → 2024-05-30 09:08 | Outpatient (CLI) | payer MEDICARE, SELFPAY ==
[2020-09-28 11:09] VITALS: BMI 25.5
== END ==
PROVIDERS: PCP Family Medicine; Referring Provider Surgery; Visit Provider Surgery
DX: D69.6 Thrombocytopenia, unspecified (principal)
CPT/HCPCS: 36415; 86850; 86900; 86901

== ENCOUNTER 2024-06-01 06:14 | Inpatient (IN) | payer MEDICARE, SELFPAY ==
[2020-09-28 11:09] VITALS: BMI 25.5
[2024-05-25 08:20] VITALS: BMI 24.4
--- NOTE | 2024-05-31 08:34 | P.HP_ITS ---
History of Present Illness History of Present Illness Date Patient Seen: 06/01/24 Time Patient Seen: 07:45 Chief complaint: Colon Resection Narrative: Ingrid Walsh is a 73-year-old woman PMH ITP, rvm-fhwtdlh-djesldchm diabetes with a 3 cm incompletely resected cecal polyp Recall colonoscopy was performed February 10, [address] Goyo Fairchild which demonstrated a complex 3 cm polyp at the cecum. Biopsy was performed which demonstrates a tubular adenoma but the polyp was not resected result of her thrombocytopenia secondary to ITP. It was suggested that perhaps colectomy would be a safer and easier way of performing the resection. He has a family history of colon cancer her brother. She had a previous transverse colectomy also performed for a large and incompletely removed polyp which resulted in benign pathology. No interval change in health [facility] Medical History History of Mohs micrographic surgery for skin cancer (03/03/19) History of COVID-19 (2021) Thrombocytopenia Idiopathic thrombocytopenic purpura (ITP) Skin cancer Bilateral knee pain Arthritis Hx gestational diabetes Diverticulosis HLD (hyperlipidemia) HTN (hypertension) Ganglion cyst of dorsum of right wrist Diabetes Surgical History Hx of colonoscopy History of colon resection (09/24/20) Hx of dilation and curettage Hx of tonsillectomy Hx of arthroscopy of right knee (10/06/13) 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) Hx of right breast biopsy (1998) Hx of rotator cuff surgery (10/09/11) History of bunionectomy Hx of section Family History Father Heart disease Mother Diabetes mellitus Sister Diabetes mellitus Brother Cancer Social History marital status: household members: spouse occupational status: previously employed Smoking Status: Never smoker alcohol intake: never Meds Home Medications and Allergies Home Medications Medication Instructions Recorded Confirmed Type lovastatin 20 mg tablet 20 mg PO DAILY 09/05/20 06/01/24 History meloxicam 7.5 mg tablet 7.5 mg PO BID 09/05/20 06/01/24 History nsguqlxc-blaj-boia 8 mg-folic 400 1 tab PO DAILY 09/05/20 06/01/24 History mcg-K 50 mcg-lutein 300 mcg tablet (Centrum Silver Women) triamterene 37.5 1 cap PO DAILY 09/05/20 06/01/24 History mg-hydrochlorothiazide 25 mg capsule pioglitazone 30 mg tablet 30 mg PO QPM 02/18/24 06/01/24 History potassium chloride 10 mEq 20 meq PO BID 02/18/24 06/01/24 History capsule,extended release metronidazole 500 mg tablet 1,000 mg (2 x 500 mg) PO .COMPLEX 04/08/24 06/01/24 Rx #6 tabs glipizide 10 mg tablet 10 mg PO DAILY 05/25/24 06/01/24 History Immune Globulin IV QMONTH ITP 06/01/24 History Allergies Allergy/AdvReac Type Severity Reaction Status Date / Time tetanus and diphtheria Allergy Mild SEVERE Verified 06/01/24 06:27 toxoids HEADACHE Exam Narrative Exam Narrative: Gen-Adult woman alert and oriented Chest- Non labored resp Abdomen-Soft non leder Objective Labs 06/01/24 06:50 Labs: Laboratory Results - last 24 hr 05/30/24 09:42 Blood Type A Positive Antibody Screen Negative Assessment & Plan Assessment and plan (1) Colon neoplasm: Status: Acute Assessment & Plan narrative: 73F with ITP and a 3cm incompletely resected cecal polyp here for elective resection. Plt 60k today will proceed with open colectomy and will begin with plt transfusion now. Overview of the operation discussed Operative risks including hemorrhage, infection, anastamotic leak, damage to surrounding structures discussed. She provides her consent to proceed Time-Based Coding :: [TOTAL MINUTES] spent with patient and on the chart (including review of chart, obtaining history, exam, reviewing outside data, placing orders, documenting exam and treatment plan, and counseling patient) on [DATE].
[2024-06-01] VITALS (16 sets, daily range): BP systolic 110–131; BP diastolic 42–83; PULSE 60–107; RESP 14–22; TEMP 35.5–37.1; O2SAT 92–99; BMI 23.1
--- NOTE | 2024-06-01 | PATH_ITS ---
[facility] Accession Number: [id number] No. of containers..02 Tissue . 01 Material submitted: . PART A: liver - LIVER BIOPSY PART B: colon - RIGHT COLON . 01 Diagnosis: A. LIVER, WEDGE BIOPSY: Metastatic colonic adenocarcinoma. See CAP summary below. . B. RIGHT COLON, SEGMENTAL RESECTION: Invasive colonic adenocarcinoma, moderately differentiated. Please see CAP summary data below. . CASE SUMMARY (COLON AND RECTUM):RESECTION version:[id number]_[id number] Procedure: Right hemicolectomy: Tumor site: Hepatic flexure. Histologic type: Adenocarcinoma. Histologic grade: G2, moderately differentiated. Tumor size: Greatest dimension: 4.5 cm. Multiple primary sites: Not applicable. Tumor extent: Invades through muscularis propria into the pericolonic tissue. Macroscopic tumor perforation: Not identified. Lymphatic and/or vascular invasion: Present, large vessel, intramural. Perineural invasion: Present. Tumor budding score: Low (0-4). Type of polyp in which invasive carcinoma arose: None identified. Treatment effect: No known presurgical therapy. . Margin status for invasive carcinoma: All margins negative for invasive carcinoma. Closest margin to invasive carcinoma: Distal margin, 6 mm. Margin status for noninvasive tumor: All margins negative for high-grade dysplasia/intramucosal carcinoma and low-grade dysplasia. . Regional lymph node status: Regional lymph nodes present. Tumor present in regional lymph nodes. Number of lymph nodes with tumor: One. Number of lymph nodes examined: Fourteen. Tumor deposits: Present. Number of tumor deposits: Five. . Distant metastasis: Liver (part A). . pTNM classification (AJCC 8th Edition) Modified classification: Not applicable. pT category: pT3 pN category: pN1a pM category: pM1a . Additional findings: -Adenomas. -Diverticulosis. -Changes consistent with prior procedure. . Special studies: No loss of expression of mismatch repair proteins MLH-1. MSH-2, MSH-6, and PMR-2 by immunohistochemistry. [facility] 06/09/2024 1540 Local . 01 Comment: Dr. Schmidt also reviewed selected slides from this case and agrees with the interpretation. Dr. Granados discussed preliminary findings with Katy in Dr. Moctezuma's office on 06/06/2024 at 11:28 a.m. . 01 Electronically signed: . Rosalina Granados MD, Pathologist NPI- [id number] . 01 Gross description: . A. Received in formalin with two identifiers and liver biopsy, is a eddy irregular soft tissue fragment 1.9 x 1.8 x 1.1 cm. Inked black, and sectioned to reveal a pale eddy, firm cut surface. Submitted entirely in cassettes A1-A2. B. Received fresh and subsequently placed in formalin with two identifiers and right colon, is a right hemicolectomy with ileum measuring 1.2 cm in length by 1.4 cm in diameter, and colon measuring 25.5 cm in length and 5.2 cm in average circumference. The ileal margin is inked blue, the colon margin is inked black, and the mesenteric margin is inked green. The attached appendix measures 3.4 cm in length by 0.5 cm in diameter. The serosa is partially covered by fat but is smooth with no puckering identified. The mucosa is eddy and velvety with three raised eddy polypoid structures ranging from 0.7 x 0.5 x 0.4 cm to 2.2 x 1.0 x 0.6 cm located in the colon just distal to the ileocecal valve. Sectioning reveals the lesion to be confined to the mucosa. A thickened annular fold measures 3.7 x 0.7 cm and is located 1.0 cm from the black-inked distal margin, and is adjacent to a firm area of fat measuring approximately 4.5 cm in greatest dimension. Sectioning reveals no distinct mucosal lesion; however, the wall is slightly thickened with firm fat directly adjacent to the thickened wall. No additional lesions are identified, and the mucosa is eddy and velvety with normal-appearing folds. A light green circular tablet is found within the cecum measuring 1.3 cm diameter and 0.5 cm thick with a faintly legible notation of N32. The castaneda average 0.2 cm thick with several diverticula measuring up to 2.3 cm in greatest dimension with no distinct perforation identified. The appendix has eddy smooth serosa and sectioning reveals a pinpoint patent lumen and castaneda that average 0.2 cm thick with no perforation or lesions identified. Palpation reveals 33 eddy lymph node candidates ranging from 0.2 to 1.1 cm in greatest dimension. Society Editor sections are submitted as follows: B1: Ileal margin en face. B2-B3: Composite firm area perpendicular to distal margin. B4-B5: Composite firm area perpendicular to distal margin. B6-B8: Through the polypoid structures. B9: Unremarkable sections and diverticula. B10: Ileocecal valve. B11: Appendix to include one-half of bisected distal tip and cross-sections. B12: Single bisected lymph node candidate. B13: Single intact lymph node candidate. B14: Two intact lymph node candidates. B15: Two intact lymph node candidates. B16: Single bisected lymph node candidate. B17: Four intact lymph node candidates. B18: Four intact lymph node candidates. B19: Four intact lymph node candidates. B20: Four intact lymph node candidates. B21: Four intact lymph node candidates. B22: Four intact lymph node candidates. ([id number]) The remaining lesion near the distal end measures 2.9 x 1.6 x 1.5 cm. The remaining lesion perpendicular to the distal margin is submitted as follows: B23-B24: Composite section. B25-B26: Composite section. B27-B30: Remaining perpendicular black margin. Additional palpation reveals 26 eddy lymph node candidates ranging from 0.3 to 1.6 cm in greatest dimension. Submitted as follows: B31: Six intact lymph node candidates. B32: Six intact lymph node candidates. B33: Five intact lymph node candidates. B34: Four intact lymph node candidates. B35: Four intact lymph node candidates. B36: A single intact lymph node candidates: ([id number]) /[facility] 06/07/2024 1538 Local . 01 Microscopic: . A. IMMUNOHISTOCHEMISTRY TESTING FOR MISMATCH REPAIR PROTEINS: . MLH1: Intact nuclear expression. MSH2: Intact nuclear expression. MSH6: Intact nuclear expression. PMS2: Intact nuclear expression. Background nonneoplastic tissue/internal control with intact nuclear expression. . INTERPRETATION: No loss of nuclear expression of MMR proteins: low probability of microsatellite instability-high (MSI-H)* Testing performed on block A2. . * There are exceptions to the above IHC interpretations. These results should not be considered in isolation, and clinical correlation with genetic counseling is recommended to assess the need for germline testing. . B. D2-40 stains were performed on blocks B2 and B3 in order to evaluate for lymphovascular invasion and show no evidence of lymphovascular invasion. Control stain showed appropriate reactivity. . B12: Elastic stain was performed to evaluate for vascular invasion and is negative. The control stain showed appropriate reactivity. . B18: Surface decalcification was performed. . * This test was developed and its performance characteristics determined by [employer] [facility]. It has not been cleared or approved by the U.S. Food and Drug Administration. The FDA has determined that such clearance or approval is not necessary. This test is used for clinical purposes. It should not be regarded as investigational or for research. . 01 Pathologist provided ICD-10: C18.3, D12.6 . 01 CPT . 711586, 768062, X03108, E88196, 766454, [id number] Specimen Comment: A courtesy copy of this report has been sent to [phone] Performed at: [address] [place] [facility] [place] [address], [place], [place] [id number] MD Cong Quintero MD Phone: [phone]
[2024-06-01 06:59] LABS: Add Manual Diff / Slide Review NO; Basophils Absolute Auto 0 /uL (0-100); Basophils Percent Auto 0.4 % (0-2); Eosinophils Absolute Auto 0 /uL (0-450); Eosinophils Percent Auto 0.6 % (2-4); Hematocrit 41.7 % (36-46); Hemoglobin 14.5 g/dL (12.0-16.0); Lymphocytes Absolute Auto 1400 /uL (1100-4500); Lymphocytes Percent Auto 21.7 % (25-40); Mean Corpuscular HGB Conc 34.7 % (30-36); Mean Corpuscular Hemoglobin 32.6 PG (26-34); Mean Corpuscular Volume 93.8 fL (80-100); Monocytes Absolute Auto 500 /uL (0-900); Monocytes Percent Auto 8.3 % (3-14); Neutrophils Absolute Auto 4500 /uL (1500-7000); Platelet Count 60 X10^3/uL (150-400); Red Blood Cell Count 4.44 X10^6/uL (4.0-5.2); Red Cell Distribution Width 14.7 % (11.6-14.8); White Blood Cell Count 6.5 X10^3/uL (4.5-11.0)
[2024-06-01] MEDS: LACTATED RINGERS 1,000 ML 42 ML IV (07:00)
[2024-06-01] MEDS: INSULIN REGULAR 100 UNIT/ML 3 ML VIAL IV (07:43)
[2024-06-01] MEDS: PIPERACILLIN/TAZO 3.375 GM in SODIUM CHLORIDE 0.9% 100 ML IV (08:17)
--- NOTE | 2024-06-01 08:37 | SUR.OPER ---
Supine on padded OR bed, head on pillow, arms secured on padded arm boards at <90 degrees abduction, legs uncrossed, safety belt at thigh, tape over blanket over lower legs.
[2024-06-01] MEDS: ACETAMINOPHEN IV 1,000 MG/100 ML VIAL 400 MG IV (08:41)
[2024-06-01] MEDS: BUPIVACAINE LIPOSOME 266 MG/20 ML VIAL INJ (09:34)
[2024-06-01] MEDS: BUPIVACAINE 0.25% W/ EPI (PF) 10 ML VIAL 20 ML INJ (09:35)
--- NOTE | 2024-06-01 10:50 | PM.OP.1 ---
Operative Date/Time/Diagnoses Date of procedure: 06/01/24 Time of procedure: 10:50 Pre-op diagnosis: colon polyp Post-op diagnosis: other (metastatic colon cancer) Procedure & Clinicians Procedure: Colectomy Wedge resection of liver mass Same procedure as scheduled: Yes Indications: 73-year-old woman history of ITP and a family history of colon cancer. She underwent a screening colonoscopy recently which demonstrated a complex of polyps within the right colon measuring a 3 cm in total. Biopsy of the polyp demonstrated a tubular adenoma. With her thrombocytopenia it was felt that she was not a candidate for endoscopic resection and was referred to surgery for colectomy. Surgeon: Aaron Moctezuma [employer] Field Examiner: Meliton Block Anesthesia Type: General Operative Notes Findings: Mass within the proximal colon. Mesenteric lymphadenopathy Numerous hepatic metastases Specimen(s): other (Right colon, liver biopsy) Estimated Blood Loss (mL): 150 Procedure in detail: Patient was brought to the operating room placed supine on the table. Bilateral lower extremity compression devices were applied. General anesthesia was induced and she was intubated with an endotracheal tube. A Kwon catheter was sterilely placed. She was then prepped and draped in sterile fashion and time-out was performed. She received Zosyn prior to skin incision. A midline laparotomy was made. The abdomen was entered atraumatically. Generalized abdominal inspection demonstrated multiple metastases throughout the liver largest being at least several cm. There was a palpable mass within the proximal right colon in addition to mesenteric lymphadenopathy. We decided to proceed with a palliative colectomy such that she would avoid future obstructive colon cancer. The right colon was mobilized off the white line Toldt from the terminal ileum to the hepatic flexure. The sweep of the duodenum was identified and swept posterior out of harm's way. The right ureter was identified by its vermiculation. A window within the mesentery to the terminal ileum was made in the ileum was then divided using the MUNIRA stapler 75 mm blue load. The colon was then divided distal to the hepatic flexure in a similar fashion. The mesentery to the right colon was then divided using the LigaSure. The ileocolic pedicle was skeletonized and doubly ligated with heavy silk suture. The specimen was then passed off the field labeled right colon. This point we took a liver biopsy of the hepatic metastasis from segment 5 using the LigaSure. Specimen was passed off the field as liver biopsy. Using electrocautery and a piece of Surgicel hemostasis was achieved. We then formed a [id number] functional end and anastomosis between the small bowel in the transverse colon. Crotch stitch was placed with silk. An enterotomy and a colotomy were made then the 2 ends were joined together using a 3rd staple firing. The common channel was inspected it was widely patent and hemostatic. The common opening was then closed with a running PDS suture. The suture line was imbricated with silk suture in interrupted fashion and a piece of omentum was placed over the suture line tacked in place. Tested the anastomosis and content moved widely across it there was no evidence of leak it was without tension and well perfused. The anastomosis was then returned to the abdomen. We went back to reinspect the liver and found that it was in fact hemostatic. The the abdomen was copiously irrigated with sterile water and returned clear. The fascia was then closed in a running manner using PDS suture followed by Vicryl suture for the subcutaneous tissue and 4-0 Monocryl for the skin followed by Dermabond. She tolerated the procedure well. She was extubated transferred to recovery in stable condition. A total of 20 mL of Exparel and 40 ml of 0.25% bupivacaine were used for local anesthetic. The sponge and instrument count was correct x2. Complications: none Post-operative Condition: stable Disposition: same day surgery
--- NOTE | 2024-06-01 13:33 | DI.CT.S_ITS ---
PROCEDURE: CT CHEST ABD PEL W CON INDICATIONS: eval metastatic colon cancer sp colectomy TECHNIQUE: After the administration of intravenous contrast, 5 mm thick sections acquired from the lung apices to the symphysis. 5 mm coronal and sagittal reformats were performed, with additional 7 mm MIP reformats through the lungs. For radiation dose reduction, the following was used: automated exposure control, adjustment of mA and/or kV according to patient size. COMPARISON: CT, CT ABDOMEN PELVIS WITH CONTRAST, 11/24/2020, 18:39. CT, CT ABDOMEN PELVIS WITH CONTRAST, 11/12/2020, 17:43. CR, XR ACUTE ABDOMEN SERIES, 09/27/2020, 14:49. FINDINGS: Image quality: Excellent. CHEST: Lower Neck: No enlarged lymph nodes. Thyroid: No thyroid nodules which require sonographic follow up, per consensus guidelines. Axillae: No enlarged lymph nodes. Chest Wall: Unremarkable. Lungs and Pleura: No pneumothorax or pleural effusions. Consolidations. There are dozens of 2-4 mm ground-glass nodular opacities within the lungs bilaterally. No priors are available for comparison. Heart: Heart size is normal. No pericardial effusion. Thoracic Vessels: The aorta and pulmonary arteries demonstrate normal size. Mediastinum and Em: No enlarged lymph nodes. Esophagus: No wall thickening. Mild hiatal hernia. ABDOMEN: Liver: Ill-defined heterogeneous low attenuation enhancing masses within the liver the largest in the dome measuring 5.9 x 4.6 by 3.5 cm. These are new compared to 202. Gallbladder: Dependent stones without wall thickening. Biliary ducts: No biliary dilation. Pancreas: No ductal dilation. Spleen: Size is within normal limits. Adrenal Glands: No adrenal nodules. Kidneys and Ureters: No hydronephrosis. No solid mass. No complex renal cystic lesion which requires follow up. Stomach and Bowel: Colonic diverticula is present without inflammatory change. Partial colectomy changes are present. Minimal scattered fluid is present within the abdomen and dependent pelvis. No organized fluid collection such as abscess. Scattered foci of free air present. Ventral Wall: No significant ventral hernia. Abdominal Nodes: No retroperitoneal or mesenteric adenopathy by size criteria. Vessels: Aorta and inferior vena cava are normal in size. PELVIS: Pelvic Organs: Uterine calcifications likely related to fibroids are present. Bladder: No bladder wall thickening, accounting for underdistention. Pelvic Nodes: No enlarged lymph nodes. Miscellaneous: No inguinal hernias are seen. Bones: No aggressive osseous abnormality. IMPRESSION: Postsurgical partial colectomy changes are present. Scattered areas of mild free fluid are present without organized abscess. Areas of free air present consistent with history of recent colectomy. Recommend correlation of time since surgery. Multiple pulmonary nodules many appearing ground-glass suspicious for metastatic disease. Multiple hepatic lesions new since 2020 most consistent with metastatic disease. Dictated by: Annamaria Campos M.D. on 06/01/2024 at 15:34 Approved by: Annamaria Campos M.D. on 06/01/2024 at 15:51
[2024-06-01] MEDS: ACETAMINOPHEN 325 MG TABLET 650 MG PO (14:42)
[2024-06-01] MEDS: DEXTROSE 5%-0.45% NS 1,000 ML 100 ML IV (14:42)
[2024-06-01 15:27] LABS: Carcinoembryonic Antigen 31.4 ng/mL (0.1-3.0)
--- NOTE | 2024-06-01 16:55 | OT.IP.EVAL ---
Current Diagnoses Neoplasm of unspecified behavior of digestive system (06/01/24) Polyp of colon (06/01/24) Surgery Performed Operation Date: 06/01/24 07:45 Actual Procedures p Open colectomy - Aaron Moctezuma MD Past Medical History (Last Reviewed 06/01/24 @ 07:47 by Aaron Moctezuma MD) Arthritis Bilateral knee pain Diabetes Diverticulosis Ganglion cyst of dorsum of right wrist History of COVID-19 (2021) History of Mohs micrographic surgery for skin cancer (03/03/19) HLD (hyperlipidemia) HTN (hypertension) Hx gestational diabetes Idiopathic thrombocytopenic purpura (ITP) Skin cancer Thrombocytopenia Surgical History (Last Reviewed 06/01/24 @ 07:47 by Aaron Moctezuma MD) History of bunionectomy History of colon resection (09/24/20) Hx of arthroscopy of right knee (10/06/13) Hx of section Hx of colonoscopy Hx of dilation and curettage Hx of right breast biopsy (1998) Hx of rotator cuff surgery (10/09/11) Hx of tonsillectomy 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 Activities of Daily Living and IADL's Independent but needs assist for her hair, clothing due to limited overhead reach LUE mainly. Social History Household Members spouse Living Arrangements House Number of Floors (Floors) 3 or More Floors Number of Stairs To Enter/Railing? Pt has 3 steps with right rail to get into the house and does not have to go upstairs for now. Home Environment Standard Height Toilet,Walk in Shower Additional Social History Comment Pt states considering just sleeping in her recliner chair with foot ottoman initially. M2 OT-IP Current Condition Start: 06/01/24 16:54 Freq: Status: Active Protocol: Document 06/01/24 16:55 [facility] (Rec: 06/01/24 17:11 [facility] [id number]) Occupational Therapy Current Condition Current Condition Evaluation Date 06/01/24 Treatment Diagnosis Colon resection Diagnosis Onset Date 06/01/24 Post Operative Precautions Abdominal Surgery Precautions Log Roll,Lifting Restrictions, Gait Belt above Incisional Area M3 OT- IP Subjective and Pain Start: 06/01/24 16:54 Freq: Status: Active Protocol: Document 06/01/24 16:55 [facility] (Rec: 06/01/24 17:11 [facility] [id number]) OT- Subjective Occupational Therapy Visit Type Type Initial Evaluation Visit Start Time 16:10 Visit Stop Time 16:55 Occupational Therapy Visit Comments Patient Comments Pt wanting to try to get up. Patient/Caregiver Goals TO go home. OT Pain Assessment Pain When Pain Assessed At Rest Pain Present Pain Present Pain Reported Location Abdomen Intensity 2 Scale Used Numeric (0 - 10) M4 OT- IP ADL's Start: 06/01/24 16:54 Freq: Status: Active Protocol: Document 06/01/24 16:55 [facility] (Rec: 06/01/24 17:11 [facility] [id number]) OT [id number] Comments OT Self-Feeding Comments NOt performed. OT ADL-Grooming General Evaluation Grooming Ability Standby Assistance Areas Needing Assistance Retrieving/Set-up of Grooming Items Comments OT Grooming Comments Able to do with FWW while standing in front of the sink. OT ADL-Oral Care General Eval Oral Care Ability Independent Comments Oral Care Comments Educated to hinge at her hips or spit into a cup. OT ADL-Dressing General Eval Upper Body Dressing Ability Maximum Assistance Lower Body Dressing Ability Maximum Assistance Areas Needing Assistance Shoes Comments OT Dressing Comments Pt needing assist to put her robe on, educated to dress her LUE first due to decreased ROM/strength. Pt needing assist for her socks/shoes. Spoke of LB dressing equipment needs but pt insists that her will just assist her. OT ADL-Toileting General Evaluation Toileting Ability Total Assistance Areas Needing Assistance Empty Catheter or Colostomy Comments OT Toileting Comments Kwon in place. Spoke of equipment options for in the future as pt just found out that she has cancer. OT ADL-Bathing Comments OT Bathing Comments Pt at this time would benefit from a shower chair. M5 OT- IP IADL's Start: 06/01/24 16:54 Freq: Status: Active Protocol: Document 06/01/24 16:55 [facility] (Rec: 06/01/24 17:11 [facility] [id number]) OT-Instrumental Activities of Daily Living Home Safety Awareness Awareness of Need for Assistance at Home Good Awareness Ability to Problem Solve Emergency Able to Problem Solve Situations Meal Preparation Meal Preparation Caregiver Provides Assist Program Medical Director Program Medical Director Caregiver Provides Assist M6 OT- IP Functional Cognition Start: 06/01/24 16:54 Freq: Status: Active Protocol: Document 06/01/24 16:55 [facility] (Rec: 06/01/24 17:11 [facility] [id number]) Cognitive Factors Limiting Selfcare Function Cognitive Ability Level of Alertness Alert Patient Orientation Name,Age,Birthday,Month,Date, Year,Day of Week,Place, Situation Attention Span Ability Capable of Focused Attention, Capable of Sustained Attention Ability to Follow Commands Able to Follow One Step Commands Cognitive Comments Cognitive Assessment Comments Pt able to follow commands for log rolling and use of FWW. OT- Vision and Hearing OT- Hearing Assessment OT- Hearing Assessment WFL OT- Vision Assessment Visual Acuity Glasses All The Time Visual Attentiveness WFL Occular Pursuits WFL M7 OT- IP Mobility and Balance Start: 06/01/24 16:54 Freq: Status: Active Protocol: Document 06/01/24 16:55 [facility] (Rec: 06/01/24 17:11 [facility] [id number]) OT- Bed Mobility Assessment Supine to Sit Supine to Sit Assist Minimal Assistance Scooting Scooting to Edge of Bed Standby Assistance OT-Transfer Assessment Sit to and From Stand Sit to and from Stand Contact Guard Assistance Transfers Transfer Ability Standby Assistance Technique Transfer Destination Bed,Chair Transfer Technique Stand Step Pivot Devices Transfer Assistive Devices Gait Belt,Front Wheeled Walker Comments Mobility Comments JULITO to help get her trunk upright from sidelying. CGA to stand and to be able to walk in the room. BP supine 138/70 and sitting 146/61 and no symptoms of being dizzy. Pt is 4'10 and having to use the small FWW for her at this time. Pt states has a high bed at home and would benefit from use of step with handle to get into and out of the bed. Pt states to just sleep in her recliner chair with hieu for now. OT- Balance Assessment Sitting Balance and Reactions Static Sitting Balance Ability Good Dynamic Sitting Balance Ability Good Standing Balance and Reactions Static Standing Balance Ability Good Dynamic Standing Balance Ability Fair M8 OT- IP Objective Assessments Start: 06/01/24 16:54 Freq: Status: Active Protocol: Document 06/01/24 16:55 [facility] (Rec: 06/01/24 17:11 [facility] [id number]) OT Gross Range of Motion Upper Extremity Range of Motion Assessment Bilaterally Impaired OT Strength Upper Extremity Strength Assessment Bilaterally Impaired M9 OT- IP Assessment and Plan Start: 06/01/24 16:54 Freq: Status: Active Protocol: Document 06/01/24 16:55 [facility] (Rec: 06/01/24 17:11 [facility] [id number]) OT Summary Assessment and Plan Potential Rehabilitation Potential Good Analytic Complexity at Evaluation Moderate Summary OT Impairments Pain,Balance,Functional Mobility,Dressing,Toileting, Bathing,Toilet Transfers, Shower Transfers,Activity Tolerance Progress Towards Goals Progressing Toward Goals Assessment Summary Pt MOd complexity and main barriers are pain, decreased activity tolerance, and now needing one person assist for mobility and ADL needs. Pt just finding out today that she has cancer. Pt to go home with 24/7 available assist when medically stable. Able to give and go over information to pt for after abdominal surgery and list for DME needs. Goals Self-Feeding Goal Independent Grooming Goal Independent Dressing Goal Minimal Assistance Toileting Goal Independent Bathing Goal Standby Assistance Toilet Transfer Goal Independent Shower Transfer Goal Standby Assistance Days to Meet Goals 5 Frequency of Treatment Frequency Of Treatment Once a Day Treatment Plan OT Treatment Plan ADL Training,Functional Mobility,Patient/Family Education,Discharge Planning Discharge Recommendations OT Discharge Recommendations Home with 24/7 Assist Available Home Equipment Needs pending progress- small FWW, shower chair Transportation Needs at Discharge Private Vehicle
--- NOTE | 2024-06-01 17:02 | PT.IIE ---
Current Diagnoses Neoplasm of unspecified behavior of digestive system (06/01/24) Polyp of colon (06/01/24) Surgery Performed Operation Date: 06/01/24 07:45 Actual Procedures p Open colectomy - Aaron Moctezuma MD Surgical History (Last Reviewed 06/01/24 @ 07:47 by Aaron Moctezuma MD) History of bunionectomy History of colon resection (09/24/20) Hx of arthroscopy of right knee (10/06/13) Hx of section Hx of colonoscopy Hx of dilation and curettage Hx of right breast biopsy (1998) Hx of rotator cuff surgery (10/09/11) Hx of tonsillectomy 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) Medical History (Last Reviewed 06/01/24 @ 07:47 by Aaron Moctezuma MD) Arthritis Bilateral knee pain Diabetes Diverticulosis Ganglion cyst of dorsum of right wrist History of COVID-19 (2021) History of Mohs micrographic surgery for skin cancer (03/03/19) HLD (hyperlipidemia) HTN (hypertension) Hx gestational diabetes Idiopathic thrombocytopenic purpura (ITP) Skin cancer Thrombocytopenia Physical Therapy Inpatient Evaluation/Re-Eval M1 PT/OT-IP Prior Functional Status Start: 06/01/24 17:43 Freq: NEEDED Status: Active Protocol: Document 06/01/24 17:02 AB (Rec: 06/01/24 18:05 AB [id number]) Medical Review Prior Functional Status Medical History Reviewed Yes Communication able to make needs known Mobility and Gait pt stated that she was independent with all mobilities and ambulation without AD Activities of Daily Living and IADL's per OT note: Independent but needs assist for her hair, clothing due to limited overhead reach LUE mainly. Social History Household Members spouse Living Arrangements House Number of Floors (Floors) 3 or More Floors Number of Stairs To Enter/Railing? 3 steps R rail ascending to enter the [facility] Environment Standard Height Toilet,Walk in Shower Home Equipment Straight Cane Additional Social History Comment pt has a high adjustable bed at home; pt plans to sleep on a recliner chair with leg support/[place] M2 PT-IP Current Condition Start: 06/01/24 17:43 Freq: NEEDED Status: Active Protocol: Document 06/01/24 17:02 AB (Rec: 06/01/24 18:05 [id number]) Physical Therapy Current Condition Current Condition Evaluation Date 06/01/24 Treatment Diagnosis colon CA with mets; s/p colectomy; difficulty in walking Onset Date 06/01/24 M3 PT-IP Subjective Start: 06/01/24 17:43 Freq: NEEDED Status: Active Protocol: Document 06/01/24 17:02 AB (Rec: 06/01/24 18:05 [id number]) Subjective Physical Therapy Visit Type Type Initial Evaluation Visit Start Time 17:02 Visit Stop Time 15:45 Number of DIESEL MAINTENANCE TECHNICIAN Visits 0 Physical Therapy Visit Comments Patient Comments agreeable to do PT Therapy Pain Assessment Pain When Pain Assessed At Rest Pain Present Pain Present Pain Reported Location Abdomen Intensity 2 Scale Used Numeric (0 - 10) Pain Behaviors Guarding Pain Management Techniques Modification of Treatment,Re- positioning,Timing of Activity with Medications M4 PT-IP Mobility and Gait Start: 06/01/24 17:43 Freq: NEEDED Status: Active Protocol: Document 06/01/24 17:02 AB (Rec: 06/01/24 18:05 [id number]) PT-Bed Mobility Assessment Rolling Type of Rolling Log Rolling Level of Assist Minimal Assistance Supine to Sit Supine to Sit Bedrails Sit to Supine Sit to Supine Minimal Assistance,Bedrails PT-Transfer Assessment Sit to and From Stand Sit to and from Stand Minimal Assistance,1 Person Assistance,Use of Upper Extremities Equipment Transfer Assistive Device Gait Belt,Front Wheeled Walker Orthotic/Prosthetic Devices or Brace: Yes Transfers Transfer Destination Bed Transfer Technique ambulated Transfer Ability Level of Assist Minimal Assistance,1 Person Assistance,Use of Upper Extremities Comments Mobility Comments pt sitting on the chair and spouse in room. obtained PLOF and home set up from pt and spouse. reviewed abdominal precautions and log roll bed mobility with pt and spouse. BP in sittin/83. pt completed sit to stand min A and cues. pt ambulated in room using FWW ~ 20 ft min A. presents with slow paced gait with decrease LE elevation and step length. pt sat on EOB and requested to just stay in bed. pt stated that she is tired. pt completed log roll sit to supine min A and cues for techniques. positioned pt in bed. call light and table placed next to pt. Left pt with spouse in room. Gait Assessment Gait Gait Assistance Required: Minimum Assistance Distance (Feet) 20 Able to Maintain Weight Bearing Status Yes During Gait Assistive Devices Assistive Device Gait Belt,Front Wheeled Walker Orthotic/Prosthetic Devices or Brace: Yes Gait Deviations General Gait Pattern Decreased Stride Length, Decreased Feet Clearance,Step- to Gait Factors Limiting Gait Function Factors Limiting Gait Function Decreased Activity Tolerance, Decreased Strength,Limited Range of Motion,Pain,Poor Balance,Poor Safety Awareness PT-Balance Assessment Sitting Balance and Reactions Static Sitting Balance Ability Good Dynamic Sitting Balance Ability Good Standing Balance and Reactions Static Standing Balance Ability Fair Dynamic Standing Balance Ability Fair Device Used FWW M5 PT-IP Objective Assessments Start: 06/01/24 17:43 Freq: NEEDED Status: Active Protocol: Document 06/01/24 17:02 AB (Rec: 06/01/24 18:05 [id number]) Orientation Orientation/Cognition Level of Alertness Alert Orientation Name,Place,Situation Language Function Ability No Deficits Noted Safety Awareness Decreased Safety Awareness Memory Description Short Term Impaired Gross Range of Motion Lower Extremity ROM Assessment Within Functional Limits Strength Lower Extremity Strength Assessment Within Functional Limits Coordination Assessment Gross Coordination Gross Coordination WNL Sensation Assessment Sensation Gross Sensation WNL Muscle Tone Muscle Tone WNL Yes M6 PT-IP Treatment Start: 06/01/24 17:43 Freq: NEEDED Status: Active Protocol: Document 06/01/24 17:02 AB (Rec: 06/01/24 18:05 AB [id number]) Physical Therapy Treatment Education Education Provided Precautions,Safety M7 PT-IP Assessment and Plan Start: 06/01/24 17:43 Freq: NEEDED Status: Active Protocol: Document 06/01/24 17:02 AB (Rec: 06/01/24 18:05 [id number]) PT Summary Assessment and Plan Potential Rehabilitation Potential Fair Status of Condition at Evaluation Evolving Summary Impairments Pain,ROM,Strength,Balance, Coordination,Sensation,Tone, Cognition,Bed Mobility, Transfers,Gait,Activity Tolerance Assessment Summary pt is a 73 y/o F s/p colectomy POD 0. pt with dx of colon CA with mets. pt requiring min A with bed mobility , transfers and ambulation using FWW. pt with decrease activity tolerance and only ambulated ~ 20 ft using FWW min A. pt plans to go home and spouse to assist. caregiver training will be conducted when appropriate as well as stair climbing training since pt has 3 steps to enter their house. will continue to assess progress. Goals Bed Mobility Goal Independent Transfer Goal Independent,Front Wheeled Walker Gait Goal Independent,Front Wheel Walker Gait Distance 200 Other Goals improve transfers and ambulation using LRAD/without AD 250 ft mod I up/down 3 steps R rail ascending SBA Days to Meet Goals 10 Frequency of Treatment Frequency Of Treatment Once a Day Treatment Plan Physical Therapy Treatment Plan Bed Mobility Training,Transfer Training,Gait Training, Therapeutic Exercise,Balance Retraining,Post Op Education, Discharge Planning,Hot or Cold Pack,Neuromuscular Re-ed, Coordination Retraining,Manual Therapy Precautions Abdominal Surgery Precautions Log Roll,Lifting Restrictions, Gait Belt above Incisional Area Recommendations To Nursing Amount of Assist Needed 1 Person Assist Discharge Recommendations PT Discharge Recommendations Home with 24/ Assist Available,Home Health Equipment Needed for Home Before FWW Discharge Transportation Needs at Discharge Private Vehicle,Wheelchair/ Cabulance
[2024-06-01] MEDS: OXYCODONE IR 5 MG TABLET PO (18:01)
--- NOTE | 2024-06-01 18:37 | PM.CALLCOV.1 ---
Call Coverage Note Note Date of Patient Contact: 06/01/24 Narrative of Care Provided: Medicine asked to consult for hyperglycemia. Patient is diabetic, on oral insulin. Recommend stopping D5 1/2 NS, ordered basic insulin orders and 5 of lantus this evening for diabetes control for now. Full consult to come tomorrow morning.
[2024-06-01] MEDS: ATORVASTATIN 20 MG TABLET PO (21:58)
[2024-06-01] MEDS: hydrOXYzine HCL 25 MG TABLET PO (21:58)
[2024-06-01] MEDS: MELATONIN 3 MG TABLET 9 MG PO (21:58)
[2024-06-01] MEDS: INSULIN GLARGINE 100 UNIT/ML 3ML PEN SUBCUT (21:59)
[2024-06-01] MEDS: POTASSIUM CHLORIDE 10 MEQ TAB 20 MEQ PO (21:59)
[2024-06-01] MEDS: INSULIN LISPRO 100 UNIT/ML 3ML VIAL SUBCUT (22:00)
[2024-06-02] VITALS (9 sets, daily range): BP systolic 121–142; BP diastolic 68–86; PULSE 88–115; RESP 15–18; TEMP 36.4–37.6; O2SAT 95–98
[2024-06-02] MEDS: OXYCODONE IR 5 MG TABLET PO ×5 (01:45→20:17)
[2024-06-02 06:44] LABS: Add Manual Diff / Slide Review NO; Basophils Absolute Auto 0 /uL (0-100); Basophils Percent Auto 0.5 % (0-2); Eosinophils Absolute Auto 100 /uL (0-450); Eosinophils Percent Auto 0.8 % (2-4); Hematocrit 36.3 % (36-46); Hemoglobin 12.7 g/dL (12.0-16.0); Lymphocytes Absolute Auto 1600 /uL (1100-4500); Lymphocytes Percent Auto 20.4 % (25-40); Mean Corpuscular Hemoglobin 32.7 PG (26-34); Mean Corpuscular Volume 93.7 fL (80-100); Monocytes Absolute Auto 500 /uL (0-900); Monocytes Percent Auto 6.8 % (3-14); Neutrophils Absolute Auto 5700 /uL (1500-7000); Neutrophils Percent Auto 71.5 % (50-75); Platelet Count 77 X10^3/uL (150-400); Red Blood Cell Count 3.87 X10^6/uL (4.0-5.2); Red Cell Distribution Width 14.7 % (11.6-14.8)
[2024-06-02 06:49] LABS: BUN Creatinine Ratio 16.2 (6-22); Blood Urea Nitrogen 11 mg/dL (7-17); Carbon Dioxide 33 mmol/L (22-32); Chloride 97 mmol/L (98-107); Estimated Glomerular Filt Rate > 60 mL/min (>60); Glucose 134 mg/dL (80-110); HEMOLYSIS < 15 (0-50); Sodium 135 mmol/L (137-145)
[2024-06-02 07:01] LABS: Potassium 2.7 mmol/L (3.4-5.1)
[2024-06-02] MEDS: TRIAMTERENE/HCTZ 37.5/25 CAPSULE 1 CAP PO (08:11)
[2024-06-02] MEDS: INSULIN LISPRO 100 UNIT/ML 3ML VIAL SUBCUT ×3 (08:12→16:51)
[2024-06-02] MEDS: POTASSIUM CHLORIDE 20 MEQ TAB 40 MEQ PO (08:12)
[2024-06-02] MEDS: ACETAMINOPHEN 325 MG TABLET 650 MG PO ×3 (08:12→20:16)
--- NOTE | 2024-06-02 09:20 | PT.IPTN ---
Current Diagnoses Neoplasm of unspecified behavior of digestive system (06/01/24) Polyp of colon (06/01/24) Surgery Performed Operation Date: 06/01/24 07:45 Actual Procedures p Open colectomy - Aaron Moctezuma MD Physical Therapy Treatment Note M2 PT-IP Current Condition Start: 06/01/24 17:43 Freq: NEEDED Status: Active Protocol: Document 06/01/24 17:02 AB (Rec: 06/01/24 18:05 AB [id number]) Physical Therapy Current Condition Current Condition Evaluation Date 06/01/24 Treatment Diagnosis colon CA with mets; s/p colectomy; difficulty in walking Onset Date 06/01/24 M3 PT-IP Subjective Start: 06/01/24 17:43 Freq: NEEDED Status: Active Protocol: Document 06/02/24 09:50 TS (Rec: 06/02/24 10:14 TS [id number]) Subjective Physical Therapy Visit Type Type Treatment Note Visit Start Time 09:20 Visit Stop Time 09:48 Number of TIRE VULCANIZER Visits 1 Physical Therapy Visit Comments Patient Comments Pt found resting in bed, is agreeable to PT. Therapy Pain Assessment Pain When Pain Assessed At Rest Pain Present Pain Present Pain Reported M4 PT-IP Mobility and Gait Start: 06/01/24 17:43 Freq: NEEDED Status: Active Protocol: Document 06/02/24 09:50 TS (Rec: 06/02/24 10:14 TS [id number]) PT-Bed Mobility Assessment Rolling Type of Rolling Log Rolling Level of Assist Standby Assistance Supine to Sit Supine to Sit Minimal Assistance,1 Person Assistance Scooting Scooting to Edge of Bed Standby Assistance PT-Transfer Assessment Sit to and From Stand Sit to and from Stand Standby Assistance,Use of Upper Extremities Equipment Transfer Assistive Device Gait Belt,Front Wheeled Walker Orthotic/Prosthetic Devices or Brace: Yes Comments Mobility Comments Logroll to L side SBA with cues for sequencing. Supine to sit Don with cues for BUE support to upright trunk. STS from bed SBA with FWW. She ambulated to sink to brush her teeth, stood with no AD. She ambulated in the hallway SBA with FWW ~250. She performed steps with single rail and CGA from spouse. Pt ambulated back to the room, was left in the chair, all needs met. Gait Assessment Gait Gait Assistance Required: Standby Assistance Distance (Feet) 250 Able to Maintain Weight Bearing Status Yes During Gait Assistive Devices Assistive Device Gait Belt,Front Wheeled Walker Orthotic/Prosthetic Devices or Brace: Yes Gait Deviations General Gait Pattern Decreased Stride Length, Decreased Feet Clearance,Step- to Gait Factors Limiting Gait Function Factors Limiting Gait Function Decreased Activity Tolerance, Decreased Strength,Limited Range of Motion,Pain,Poor Balance,Poor Safety Awareness Stair Climbing Assessment Evaluation Level of Assist On Stairs Contact Guard Assistance Devices Stair Climbing Assistive Devices Right Railing Technique/Endurance Stair Climbing Direction Ascend and Descend Stair Climbing Technique Step to Step Number of Steps Climbed 3 Comments Stair Climbing Comments See mobility comments PT-Balance Assessment Sitting Balance and Reactions Static Sitting Balance Ability Good Dynamic Sitting Balance Ability Good Standing Balance and Reactions Static Standing Balance Ability Fair Dynamic Standing Balance Ability Fair Device Used FWW M5 PT-IP Objective Assessments Start: 06/01/24 17:43 Freq: NEEDED Status: Active Protocol: Document 06/01/24 17:02 AB (Rec: 06/01/24 18:05 AB [id number]) Orientation Orientation/Cognition Level of Alertness Alert Orientation Name,Place,Situation Language Function Ability No Deficits Noted Safety Awareness Decreased Safety Awareness Memory Description Short Term Impaired Gross Range of Motion Lower Extremity ROM Assessment Within Functional Limits Strength Lower Extremity Strength Assessment Within Functional Limits Coordination Assessment Gross Coordination Gross Coordination WNL Sensation Assessment Sensation Gross Sensation WNL Muscle Tone Muscle Tone WNL Yes M6 PT-IP Treatment Start: 06/01/24 17:43 Freq: NEEDED Status: Active Protocol: Document 06/02/24 09:50 TS (Rec: 06/02/24 10:14 [id number]) Physical Therapy Treatment Education Education Provided Precautions,Safety M7 PT-IP Assessment and Plan Start: 06/01/24 17:43 Freq: NEEDED Status: Active Protocol: Document 06/02/24 09:50 TS (Rec: 06/02/24 10:14 [id number]) PT Summary Assessment and Plan Potential Rehabilitation Potential Fair Summary Impairments Pain,ROM,Strength,Balance, Coordination,Sensation,Tone, Cognition,Bed Mobility, Transfers,Gait,Activity Tolerance Progress Towards Goals Progressing Toward Goals Assessment Summary Ingrid is making good progress with her mobility. She is Don for uprighting to sitting on EOB. She requires cues for logroll sequencing. She progressed her gait to ~250' SBA with FWW. She progressed to stairs x3 with single rail and CGA from spouse. Spouse was instructed in bed mobility , STS, stair and gait training . PT is recommending home with assist. Goals Bed Mobility Goal Independent Transfer Goal Independent,Front Wheeled Walker Gait Goal Independent,Front Wheel Walker Gait Distance 200 Other Goals improve transfers and ambulation using LRAD/without AD 250 ft mod I up/down 3 steps R rail ascending SBA Days to Meet Goals 10 Frequency of Treatment Frequency Of Treatment Once a Day Treatment Plan Physical Therapy Treatment Plan Bed Mobility Training,Transfer Training,Gait Training, Therapeutic Exercise,Balance Retraining,Post Op Education, Discharge Planning,Hot or Cold Pack,Neuromuscular Re-ed, Coordination Retraining,Manual Therapy Precautions Abdominal Surgery Precautions Log Roll,Lifting Restrictions, Gait Belt above Incisional Area Recommendations To Nursing Amount of Assist Needed 1 Person Assist Discharge Recommendations PT Discharge Recommendations Home with 24/ Assist Available Equipment Needed for Home Before FWW Discharge Transportation Needs at Discharge Private Vehicle,Wheelchair/ Cabulance
[2024-06-02] MEDS: POTASSIUM CHLORIDE 10 MEQ TAB 40 MEQ PO ×2 (11:31→17:08)
[2024-06-02 11:43] LABS: Hemoglobin A1C% w Est Avg Glu 6.3 % (4.0-6.0)
[2024-06-02] MEDS: DOCUSATE 100 MG CAPSULE PO (12:23)
--- NOTE | 2024-06-02 14:17 | CM.DANOTE ---
Initial DCP Assessment Note Pt is a 73 yo female, resident of [place], now POD#1 from resection of liver mass, patient with known metastatic colon cancer. PCP: Jordan Call Payer: MCR/[employer] Reviewed chart, met w/patient and spouse, introduced self and role. Patient discusses her very recent dx of metastatic colon cancer and shares that her brother very recently from colon cancer. Patient further shares that her brother did not seek medical care and had hospice services very late. Patient and spouse in good spirits this visit and recount their many years . Spouse explains he and patient want to focus on quality of life now and not quantity. Discussed hospice services. Patient/spouse deny need for referral today; state appreciation for the discussion. Patient feels well supported by loving family and friends. CM team will plan to follow clinical course closely. No needs from this CM team currently, patient denies need for HH or Hospice. Plan: Discharge home with supportive spouse and family via spouse pov. CHELSEA Diaz Discharge Planning/Care Management CM Discharge Assessment Start: 06/02/24 14:15 Freq: Status: Active Protocol: Document 06/02/24 14:16 DEVONTE (Rec: 06/02/24 14:17 DEVONTE [id number]) Discharge Planning Assessment Assigned Trim Carpenter CHELSEA Logan DPOA/Assigned Designee Name Joe Jean, spouse Contact Information [phone] Advance Directives? Yes Advance Directives on File Yes History Provided By Patient,Significant Other, Medical Record Prior Living Arrangements House Household Members spouse Type of transporation used prior to Drives own vehicle admit Independent with ADL's Yes Is patient alert and oriented? Yes Barriers to Discharge No Discharge Plan Home Transportation Arrangement Spouse Referrals Initiated None needed Whiteboard Updated in Patient Room with Yes name and ext. # of Trim Carpenter
--- NOTE | 2024-06-02 15:20 | OT.IP.TRT ---
Current Diagnoses Neoplasm of unspecified behavior of digestive system (06/01/24) Polyp of colon (06/01/24) Surgery Performed Operation Date: 06/01/24 07:45 Actual Procedures p Open colectomy with liver biopsy - Aaron Moctezuma MD Occupational Therapy Treatment Note M2 OT-IP Current Condition Start: 06/01/24 16:54 Freq: Status: Active Protocol: Document 06/01/24 16:55 [facility] (Rec: 06/01/24 17:11 [facility] [id number]) Occupational Therapy Current Condition Current Condition Evaluation Date 06/01/24 Treatment Diagnosis Colon resection Diagnosis Onset Date 06/01/24 Post Operative Precautions Abdominal Surgery Precautions Log Roll,Lifting Restrictions, Gait Belt above Incisional Area M3 OT- IP Subjective and Pain Start: 06/01/24 16:54 Freq: Status: Active Protocol: Document 06/02/24 15:45 [facility] (Rec: 06/02/24 15:53 [facility] [id number]) OT- Subjective Occupational Therapy Visit Type Type Treatment Note Visit Start Time 15:00 Visit Stop Time 15:20 Occupational Therapy Visit Comments Patient Comments Pt wanting to use the bathroom . Patient/Caregiver Goals TO go home. OT Pain Assessment Pain When Pain Assessed During Mobility Pain Present Pain Present Pain Reported Location Abdomen Pain Behaviors Facial Grimacing,Holding Area M4 OT- IP ADL's Start: 06/01/24 16:54 Freq: Status: Active Protocol: Document 06/02/24 15:45 [facility] (Rec: 06/02/24 15:53 [facility] [id number]) OT ADL-Grooming Comments OT Grooming Comments Pt able to wash her hand at the sink. OT ADL-Dressing Comments OT Dressing Comments Not performed. OT ADL-Toileting General Evaluation Toileting Ability Standby Assistance Comments OT Toileting Comments Pt able to get into and out of the bathroom with distant SBA . OT ADL-Bathing Comments OT Bathing Comments Pt able to shower with nursing aid earlier. M5 OT- IP IADL's Start: 06/01/24 16:54 Freq: Status: Active Protocol: Document 06/01/24 16:55 [facility] (Rec: 06/01/24 17:11 [facility] [id number]) OT-Instrumental Activities of Daily Living Home Safety Awareness Awareness of Need for Assistance at Home Good Awareness Ability to Problem Solve Emergency Able to Problem Solve Situations Meal Preparation Meal Preparation Caregiver Provides Assist Director Employment Director Employment Caregiver Provides Assist M6 OT- IP Functional Cognition Start: 06/01/24 16:54 Freq: Status: Active Protocol: Document 06/01/24 16:55 [facility] (Rec: 06/01/24 17:11 [facility] [id number]) Cognitive Factors Limiting Selfcare Function Cognitive Ability Level of Alertness Alert Patient Orientation Name,Age,Birthday,Month,Date, Year,Day of Week,Place, Situation Attention Span Ability Capable of Focused Attention, Capable of Sustained Attention Ability to Follow Commands Able to Follow One Step Commands Cognitive Comments Cognitive Assessment Comments Pt able to follow commands for log rolling and use of FWW. OT- Vision and Hearing OT- Hearing Assessment OT- Hearing Assessment WFL OT- Vision Assessment Visual Acuity Glasses All The Time Visual Attentiveness WFL Occular Pursuits WFL M7 OT- IP Mobility and Balance Start: 06/01/24 16:54 Freq: Status: Active Protocol: Document 06/02/24 15:45 [facility] (Rec: 06/02/24 15:53 [facility] [id number]) OT-Transfer Assessment Sit to and From Stand Sit to and from Stand Independent Transfers Transfer Ability Standby Assistance Technique Transfer Destination Chair,Toilet Transfer Technique Stand Step Pivot Devices Transfer Assistive Devices None,Front Wheeled Walker Comments Mobility Comments Pt states has been walking without the FWW. Attempted with OT in the room and hallway. Noted pt is a little unsteady on her feet and tends to sway side to side a little and noted minimal swing of her left arm. Use of FWW pt noted much more steady. Suggested pt would benefit from a fww or 4ww- pt not wanting to try the 4ww at this time. OT- Balance Assessment Sitting Balance and Reactions Static Sitting Balance Ability Normal Dynamic Sitting Balance Ability Good Standing Balance and Reactions Static Standing Balance Ability Good Dynamic Standing Balance Ability Fair M8 OT- IP Objective Assessments Start: 06/01/24 16:54 Freq: Status: Active Protocol: Document 06/01/24 16:55 [facility] (Rec: 06/01/24 17:11 [facility] [id number]) OT Gross Range of Motion Upper Extremity Range of Motion Assessment Bilaterally Impaired OT Strength Upper Extremity Strength Assessment Bilaterally Impaired M9 OT- IP Assessment and Plan Start: 06/01/24 16:54 Freq: Status: Active Protocol: Document 06/02/24 15:45 [facility] (Rec: 06/02/24 15:53 [facility] [id number]) OT Summary Assessment and Plan Potential Rehabilitation Potential Good Analytic Complexity at Evaluation Moderate Summary OT Impairments Pain,Balance,Functional Mobility,Dressing,Toileting, Bathing,Toilet Transfers, Shower Transfers,Activity Tolerance Progress Towards Goals Progressing Toward Goals Assessment Summary Pt able to use the toilet with distant SBA. Trial of walking without the FWW and pt still a little unsteady and best to use a FWW for distance. Wanting to try a 4ww with pt but pt refused. Pt able to take a shower earlier- pt will benefit from a shower chair at home to use. Pt to go home with assist. Goals Self-Feeding Goal Independent Grooming Goal Independent Dressing Goal Minimal Assistance Toileting Goal Independent Bathing Goal Standby Assistance Toilet Transfer Goal Independent Shower Transfer Goal Standby Assistance Days to Meet Goals 3 Frequency of Treatment Frequency Of Treatment Once a Day Treatment Plan OT Treatment Plan ADL Training,Functional Mobility,Patient/Family Education,Discharge Planning Other Treatment Recommendations and Next Trial of 4ww Treatment Focus Discharge Recommendations OT Discharge Recommendations Home with Assistance Home Equipment Needs Shower chair, fww versus 4ww Transportation Needs at Discharge Private Vehicle
--- NOTE | 2024-06-02 15:36 | P.PN_ITS ---
Subjective Subjective Date Patient Seen: 06/02/24 Time Patient Seen: 15:36 Interval history: No major overnight events. Tolerating liquids. Ambulatory. Exam Vital Signs (past 8 hours): - 06/02/24 08:00 06/02/24 11:12 06/02/24 11:31 Temperature 98.0 F 97.7 F 97.7 F Pulse Rate 104 H 105 H 106 H Respiratory Rate 15 16 16 Blood Pressure 124/68 121/76 141/82 H Pulse Oximetry 95 Oxygen Flow Rate 0 06/02/24 12:00 06/02/24 12:23 Temperature 97.8 F 97.9 F Pulse Rate 97 H 115 H Respiratory Rate 15 16 Blood Pressure 124/70 138/76 Pulse Oximetry 95 Oxygen Flow Rate 0 Oxygen Delivery Method Room Air Oxygen Flow Rate 0 Narrative Exam Narrative: General adult woman alert oriented no acute distress Abdomen soft appropriately tender to palpation. Dressing clean dry intact. Objective Labs 06/02/24 05:20 06/02/24 05:20 Labs: Laboratory Results - last 24 hr 05/30/24 06/02/24 06/02/24 09:42 05:00 05:20 WBC 8.0 RBC 3.87 L Hgb 12.7 Hct 36.3 MCV 93.7 MCH 32.7 MCHC 35.0 RDW 14.7 Plt Count 77 L Neut % (Auto) 71.5 Lymph % (Auto) 20.4 L [place] % (Auto) 6.8 Eos % (Auto) 0.8 L Baso % (Auto) 0.5 Neut # (Auto) 5700 Lymph # (Auto) 1600 [place] # (Auto) 500 Eos # (Auto) 100 Baso # (Auto) 0 Sodium 135 L Potassium 2.7 L* Chloride 97 L Carbon Dioxide 33 H BUN 11 Creatinine 0.68 Estimated GFR > 60 BUN/Creatinine Ratio 16.2 Glucose 134 H Hemoglobin A1c 6.3 H Cancelled Hgb A1c (Ref Lab) Cancelled Calcium 9.0 Blood Type A Positive Antibody Screen Negative [facility] Medical History History of Mohs micrographic surgery for skin cancer (03/03/19) History of COVID-19 (2021) Thrombocytopenia Idiopathic thrombocytopenic purpura (ITP) Skin cancer Bilateral knee pain Arthritis Hx gestational diabetes Diverticulosis HLD (hyperlipidemia) HTN (hypertension) Ganglion cyst of dorsum of right wrist Diabetes Surgical History Hx of colonoscopy History of colon resection (09/24/20) Hx of dilation and curettage Hx of tonsillectomy Hx of arthroscopy of right knee (10/06/13) 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) Hx of right breast biopsy (1998) Hx of rotator cuff surgery (10/09/11) History of bunionectomy Hx of section Family History Father Heart disease Mother Diabetes mellitus Sister Diabetes mellitus Brother Cancer Social History marital status: household members: spouse occupational status: previously employed Smoking Status: Never smoker alcohol intake: never Assessment & Plan Post-op Postoperative Procedures: Procedures Operation Date: 06/01/24 07:45 Actual Procedure Side Surgeon p Open colectomy with liver biopsy Aaron Moctezuma MD Postoperative status narrative: 73-year-old woman postoperative day 1 status post colectomy and liver biopsy findings of widely metastatic colon cancer. -regular diet -remove Kwon catheter -SCDs. No chemical VTE prophylaxis due to thrombocytopenia./ITP -discussion of goals of care we will revisit code status.
--- NOTE | 2024-06-02 16:29 | PM.CALLCOV.1 ---
Call Coverage Note Note Narrative of Care Provided: Glucose levels appear improved today. Will continue to monitor peripherally but given improvement will not perform formal consultation. Please reach out if additional questions or if formal consultation is desired. Discussed with primary care team today.
[2024-06-02] MEDS: INSULIN GLARGINE 100 UNIT/ML 3ML PEN SUBCUT (20:17)
[2024-06-02] MEDS: MELATONIN 3 MG TABLET 9 MG PO (20:17)
[2024-06-02] MEDS: ATORVASTATIN 20 MG TABLET PO (20:17)
[2024-06-03] MEDS: hydrOXYzine HCL 25 MG TABLET PO (00:01)
[2024-06-03] MEDS: OXYCODONE IR 5 MG TABLET PO (06:04)
[2024-06-03 06:22] LABS: Add Manual Diff / Slide Review NO; Basophils Absolute Auto 0 /uL (0-100); Basophils Percent Auto 0.4 % (0-2); Eosinophils Absolute Auto 100 /uL (0-450); Eosinophils Percent Auto 1.5 % (2-4); Hematocrit 36.5 % (36-46); Hemoglobin 12.8 g/dL (12.0-16.0); Lymphocytes Absolute Auto 1700 /uL (1100-4500); Lymphocytes Percent Auto 19.6 % (25-40); Mean Corpuscular HGB Conc 35.1 % (30-36); Mean Corpuscular Hemoglobin 33.1 PG (26-34); Mean Corpuscular Volume 94.2 fL (80-100); Monocytes Absolute Auto 600 /uL (0-900); Neutrophils Absolute Auto 6200 /uL (1500-7000); Neutrophils Percent Auto 71.5 % (50-75); Platelet Count 94 X10^3/uL (150-400); Red Blood Cell Count 3.88 X10^6/uL (4.0-5.2); Red Cell Distribution Width 14.8 % (11.6-14.8); White Blood Cell Count 8.7 X10^3/uL (4.5-11.0)
[2024-06-03 06:39] LABS: BUN Creatinine Ratio 20.6 (6-22); Blood Urea Nitrogen 13 mg/dL (7-17); Calcium 9.7 mg/dL (8.4-10.2); Carbon Dioxide 34 mmol/L (22-32); Chloride 96 mmol/L (98-107); Estimated Glomerular Filt Rate > 60 mL/min (>60); Glucose 141 mg/dL (80-110); HEMOLYSIS < 15 (0-50); Potassium 3.9 mmol/L (3.4-5.1); Sodium 133 mmol/L (137-145)
[2024-06-03] MEDS: INSULIN LISPRO 100 UNIT/ML 3ML VIAL SUBCUT ×4 (08:15→21:03)
[2024-06-03] MEDS: ACETAMINOPHEN 325 MG TABLET 650 MG PO ×2 (08:16→20:19)
[2024-06-03] MEDS: POTASSIUM CHLORIDE 10 MEQ TAB 40 MEQ PO ×2 (08:16→12:48)
[2024-06-03] MEDS: TRIAMTERENE/HCTZ 37.5/25 CAPSULE 1 CAP PO (08:16)
[2024-06-03] MEDS: DOCUSATE 100 MG CAPSULE PO (08:17)
[2024-06-03 09:00] VITALS: BP 176/90; PULSE 108; RESP 16; O2SAT 97
--- NOTE | 2024-06-03 10:15 | PT.IPTN ---
Current Diagnoses Neoplasm of unspecified behavior of digestive system (06/01/24) Polyp of colon (06/01/24) Surgery Performed Operation Date: 06/01/24 07:45 Actual Procedures p Open colectomy with liver biopsy - Aaron Moctezuma MD Physical Therapy Treatment Note M2 PT-IP Current Condition Start: 06/01/24 17:43 Freq: NEEDED Status: Active Protocol: Document 06/01/24 17:02 AB (Rec: 06/01/24 18:05 AB [id number]) Physical Therapy Current Condition Current Condition Evaluation Date 06/01/24 Treatment Diagnosis colon CA with mets; s/p colectomy; difficulty in walking Onset Date 06/01/24 M3 PT-IP Subjective Start: 06/01/24 17:43 Freq: NEEDED Status: Active Protocol: Document 06/03/24 10:31 TS (Rec: 06/03/24 10:39 TS [id number]) Subjective Physical Therapy Visit Type Type Treatment Note Visit Start Time 10:15 Visit Stop Time 10:30 Number of [employer] INVESTIGATOR Visits 2 Physical Therapy Visit Comments Patient Comments Pt found resting in chair, is emotional this morning, she is agreeable to PT. M4 PT-IP Mobility and Gait Start: 06/01/24 17:43 Freq: NEEDED Status: Active Protocol: Document 06/03/24 10:31 TS (Rec: 06/03/24 10:39 TS [id number]) PT-Transfer Assessment Sit to and From Stand Sit to and from Stand Standby Assistance Equipment Transfer Assistive Device Gait Belt,Front Wheeled Walker Orthotic/Prosthetic Devices or Brace: Yes Comments Mobility Comments STS from chair with FWW SBA. She ambulated ~250'SBA with FWW and step thru gait. Pt ambulated back to room, was left in chair, spouse in room. Gait Assessment Gait Gait Assistance Required: Standby Assistance Distance (Feet) 250 Able to Maintain Weight Bearing Status Yes During Gait Assistive Devices Assistive Device Gait Belt,Front Wheeled Walker Orthotic/Prosthetic Devices or Brace: Yes Gait Deviations General Gait Pattern Decreased Stride Length, Decreased Feet Clearance,Step- to Gait Factors Limiting Gait Function Factors Limiting Gait Function Decreased Activity Tolerance, Decreased Strength,Limited Range of Motion,Pain,Poor Balance,Poor Safety Awareness PT-Balance Assessment Sitting Balance and Reactions Static Sitting Balance Ability Normal Dynamic Sitting Balance Ability Good Standing Balance and Reactions Static Standing Balance Ability Good Dynamic Standing Balance Ability Fair Device Used FWW M5 PT-IP Objective Assessments Start: 06/01/24 17:43 Freq: NEEDED Status: Active Protocol: Document 06/01/24 17:02 AB (Rec: 06/01/24 18:05 AB [id number]) Orientation Orientation/Cognition Level of Alertness Alert Orientation Name,Place,Situation Language Function Ability No Deficits Noted Safety Awareness Decreased Safety Awareness Memory Description Short Term Impaired Gross Range of Motion Lower Extremity ROM Assessment Within Functional Limits Strength Lower Extremity Strength Assessment Within Functional Limits Coordination Assessment Gross Coordination Gross Coordination WNL Sensation Assessment Sensation Gross Sensation WNL Muscle Tone Muscle Tone WNL Yes M6 PT-IP Treatment Start: 06/01/24 17:43 Freq: NEEDED Status: Active Protocol: Document 06/03/24 10:31 TS (Rec: 06/03/24 10:39 TS [id number]) Physical Therapy Treatment Education Education Provided Precautions,Safety M7 PT-IP Assessment and Plan Start: 06/01/24 17:43 Freq: NEEDED Status: Active Protocol: Document 06/03/24 10:31 TS (Rec: 06/03/24 10:39 TS [id number]) PT Summary Assessment and Plan Potential Rehabilitation Potential Fair Status of Condition at Evaluation Evolving Summary Impairments Pain,ROM,Strength,Balance, Coordination,Sensation,Tone, Cognition,Bed Mobility, Transfers,Gait,Activity Tolerance Progress Towards Goals Progressing Toward Goals Assessment Summary Ingrid continues to do well with her mobility. She continues to ambulate long distances in the hallway SBA. She has good standing balance with FWW. PT continues to recommend home with assist. Goals Bed Mobility Goal Independent Transfer Goal Independent,Front Wheeled Walker Gait Goal Independent,Front Wheel Walker Gait Distance 200 Other Goals improve transfers and ambulation using LRAD/without AD 250 ft mod I up/down 3 steps R rail ascending SBA Days to Meet Goals 10 Frequency of Treatment Frequency Of Treatment Once a Day Treatment Plan Physical Therapy Treatment Plan Bed Mobility Training,Transfer Training,Gait Training, Therapeutic Exercise,Balance Retraining,Post Op Education, Discharge Planning,Hot or Cold Pack,Neuromuscular Re-ed, Coordination Retraining,Manual Therapy Precautions Abdominal Surgery Precautions Log Roll,Lifting Restrictions, Gait Belt above Incisional Area Recommendations To Nursing Amount of Assist Needed 1 Person Assist Discharge Recommendations PT Discharge Recommendations Home with Assistance Equipment Needed for Home Before FWW Discharge Transportation Needs at Discharge Private Vehicle
[2024-06-03] MEDS: ONDANSETRON 4 MG/2 ML INJ IV (12:48)
[2024-06-03 13:00] VITALS: BP 175/92; PULSE 115; RESP 16; TEMP 36.3; O2SAT 95
--- NOTE | 2024-06-03 14:36 | OT.IP.TRT ---
Current Diagnoses Neoplasm of unspecified behavior of digestive system (06/01/24) Polyp of colon (06/01/24) Surgery Performed Operation Date: 06/01/24 07:45 Actual Procedures p Open colectomy with liver biopsy - Aaron Moctezuma MD Occupational Therapy Treatment Note M2 OT-IP Current Condition Start: 06/01/24 16:54 Freq: Status: Active Protocol: Document 06/01/24 16:55 [facility] (Rec: 06/01/24 17:11 [facility] [id number]) Occupational Therapy Current Condition Current Condition Evaluation Date 06/01/24 Treatment Diagnosis Colon resection Diagnosis Onset Date 06/01/24 Post Operative Precautions Abdominal Surgery Precautions Log Roll,Lifting Restrictions, Gait Belt above Incisional Area M3 OT- IP Subjective and Pain Start: 06/01/24 16:54 Freq: Status: Active Protocol: Document 06/03/24 14:39 [facility] (Rec: 06/03/24 14:49 [facility] [id number]) OT- Subjective Occupational Therapy Visit Type Type Treatment Note Visit Start Time 14:26 Visit Stop Time 14:36 Occupational Therapy Visit Comments Patient Comments Pt agreed to try walking with the 4ww. Patient/Caregiver Goals TO go home. OT Pain Assessment Pain When Pain Assessed At Rest Pain Present Pain Present Pain Reported M4 OT- IP ADL's Start: 06/01/24 16:54 Freq: Status: Active Protocol: Document 06/02/24 15:45 [facility] (Rec: 06/02/24 15:53 [facility] [id number]) OT ADL-Grooming Comments OT Grooming Comments Pt able to wash her hand at the sink. OT ADL-Dressing Comments OT Dressing Comments Not performed. OT ADL-Toileting General Evaluation Toileting Ability Standby Assistance Comments OT Toileting Comments Pt able to get into and out of the bathroom with distant SBA . OT ADL-Bathing Comments OT Bathing Comments Pt able to shower with nursing aid earlier. M5 OT- IP IADL's Start: 06/01/24 16:54 Freq: Status: Active Protocol: Document 06/01/24 16:55 [facility] (Rec: 06/01/24 17:11 [facility] [id number]) OT-Instrumental Activities of Daily Living Home Safety Awareness Awareness of Need for Assistance at Home Good Awareness Ability to Problem Solve Emergency Able to Problem Solve Situations Meal Preparation Meal Preparation Caregiver Provides Assist Business Director Business Director Caregiver Provides Assist M6 OT- IP Functional Cognition Start: 06/01/24 16:54 Freq: Status: Active Protocol: Document 06/03/24 14:39 [facility] (Rec: 06/03/24 14:49 [facility] [id number]) Cognitive Factors Limiting Selfcare Function Cognitive Comments Cognitive Assessment Comments Pt insists that her to assist her and not wanting to go over use of LB dressing equipment needs. Suggested pt get a shower chair and pt states to just borrow the lawn chair from her neighbor. Already gave pt equipment list . M7 OT- IP Mobility and Balance Start: 06/01/24 16:54 Freq: Status: Active Protocol: Document 06/03/24 14:39 [facility] (Rec: 06/03/24 14:49 [facility] [id number]) OT-Transfer Assessment Sit to and From Stand Sit to and from Stand Independent Transfers Transfer Ability Standby Assistance Technique Transfer Destination Chair Transfer Technique Stand Step Pivot Devices Transfer Assistive Devices 4 Wheeled Walker Comments Mobility Comments Pt is a bit unsteady with the 4ww at this time and best for pt to use a FWW. Suggested FWW for home use and pt states to get one from a friend. Did offer to the pt that FWW can be dispensed here from the hospital if needed. OT- Balance Assessment Sitting Balance and Reactions Static Sitting Balance Ability Normal Dynamic Sitting Balance Ability Good Standing Balance and Reactions Static Standing Balance Ability Good Dynamic Standing Balance Ability Fair M8 OT- IP Objective Assessments Start: 06/01/24 16:54 Freq: Status: Active Protocol: Document 06/01/24 16:55 [facility] (Rec: 06/01/24 17:11 [facility] [id number]) OT Gross Range of Motion Upper Extremity Range of Motion Assessment Bilaterally Impaired OT Strength Upper Extremity Strength Assessment Bilaterally Impaired M9 OT- IP Assessment and Plan Start: 06/01/24 16:54 Freq: Status: Active Protocol: Document 06/03/24 14:39 [facility] (Rec: 06/03/24 14:49 [facility] [id number]) OT Summary Assessment and Plan Potential Rehabilitation Potential Good Analytic Complexity at Evaluation Moderate Summary OT Impairments Pain,Balance,Functional Mobility,Dressing,Toileting, Bathing,Toilet Transfers, Shower Transfers,Activity Tolerance Progress Towards Goals Progressing Toward Goals Assessment Summary Pt still a bit unsteady on her feet and will benefit from use of FWW versus 4ww at this time. Pt not interested to get one from the hospital and states to just borrow one from a friend. Able to go over energy conservations strategies with the pt. Goals Dressing Goal Minimal Assistance Toileting Goal Independent Bathing Goal Standby Assistance Toilet Transfer Goal Independent Shower Transfer Goal Standby Assistance Days to Meet Goals 2 Frequency of Treatment Frequency Of Treatment Once a Day Treatment Plan OT Treatment Plan ADL Training,Functional Mobility,Patient/Family Education,Discharge Planning Discharge Recommendations OT Discharge Recommendations Home with 15/06 Assist Available Home Equipment Needs FWW, shower chair Transportation Needs at Discharge Private Vehicle
[2024-06-03 17:00] VITALS: BP 166/88; PULSE 104; RESP 17; TEMP 36.4; O2SAT 95
--- NOTE | 2024-06-03 17:04 | P.PN_ITS ---
Subjective Subjective Date Patient Seen: 06/03/24 Time Patient Seen: 17:04 Interval history: bloated with mild nausea. No flatus or bm Exam Vital Signs (past 8 hours): - 06/03/24 13:00 Temperature 97.4 F L Pulse Rate 115 H Respiratory Rate 16 Blood Pressure 175/92 H Pulse Oximetry 95 Oxygen Delivery Method Room Air Oxygen Flow Rate 0 Narrative Exam Narrative: Gen-Adult woman alert and oriented Abdomen-Soft appropriately tender minimal distention Objective Labs 06/03/24 05:23 06/03/24 05:23 Labs: Laboratory Results - last 24 hr 06/03/24 05:23 WBC 8.7 RBC 3.88 L Hgb 12.8 Hct 36.5 MCV 94.2 MCH 33.1 MCHC 35.1 RDW 14.8 Plt Count 94 L Neut % (Auto) 71.5 Lymph % (Auto) 19.6 L [place] % (Auto) 7.0 Eos % (Auto) 1.5 L Baso % (Auto) 0.4 Neut # (Auto) 6200 Lymph # (Auto) 1700 [place] # (Auto) 600 Eos # (Auto) 100 Baso # (Auto) 0 Sodium 133 L Potassium 3.9 D Chloride 96 L Carbon Dioxide 34 H BUN 13 Creatinine 0.63 Estimated GFR > 60 BUN/Creatinine Ratio 20.6 Glucose 141 H Calcium 9.7 PFSH Medical History History of Mohs micrographic surgery for skin cancer (03/03/19) History of COVID-19 (2021) Thrombocytopenia Idiopathic thrombocytopenic purpura (ITP) Skin cancer Bilateral knee pain Arthritis Hx gestational diabetes Diverticulosis HLD (hyperlipidemia) HTN (hypertension) Ganglion cyst of dorsum of right wrist Diabetes Surgical History Hx of colonoscopy History of colon resection (09/24/20) Hx of dilation and curettage Hx of tonsillectomy Hx of arthroscopy of right knee (10/06/13) 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
[2024-06-03] MEDS: METOCLOPRAMIDE 10 MG/2 ML INJ 5 MG IV (17:27)
[2024-06-03 20:00] VITALS: BP 157/87; PULSE 112; RESP 18; O2SAT 94
[2024-06-03] MEDS: PANTOPRAZOLE 40 MG VIAL IV (20:20)
[2024-06-03] MEDS: SODIUM CHLORIDE 0.9% FLUSH 10 ML IV (20:20)
[2024-06-03] MEDS: ATORVASTATIN 20 MG TABLET PO (20:20)
[2024-06-03 20:27] VITALS: TEMP 37.6
[2024-06-03] MEDS: INSULIN GLARGINE 100 UNIT/ML 3ML PEN SUBCUT (21:04)
[2024-06-03] MEDS: MELATONIN 3 MG TABLET 9 MG PO (22:34)
[2024-06-03 23:00] VITALS: BP 171/89; PULSE 101; RESP 20; TEMP 36.6; O2SAT 96
[2024-06-04] VITALS (7 sets, daily range): BP systolic 142–173; BP diastolic 69–94; PULSE 93–109; RESP 14–20; TEMP 35.9–36.6; O2SAT 95–97
[2024-06-04] MEDS: SODIUM CHLORIDE 0.9% FLUSH 10 ML IV ×4 (02:13→20:10)
[2024-06-04] MEDS: METOCLOPRAMIDE 10 MG/2 ML INJ 5 MG IV ×2 (02:13→09:10)
[2024-06-04 05:56] LABS: Add Manual Diff / Slide Review NO; Basophils Absolute Auto 0 /uL (0-100); Basophils Percent Auto 0.3 % (0-2); Eosinophils Absolute Auto 0 /uL (0-450); Eosinophils Percent Auto 0.1 % (2-4); Hematocrit 40.4 % (36-46); Lymphocytes Absolute Auto 1400 /uL (1100-4500); Lymphocytes Percent Auto 22.2 % (25-40); Mean Corpuscular HGB Conc 34.7 % (30-36); Mean Corpuscular Hemoglobin 32.6 PG (26-34); Monocytes Absolute Auto 500 /uL (0-900); Monocytes Percent Auto 7.7 % (3-14); Neutrophils Absolute Auto 4500 /uL (1500-7000); Neutrophils Percent Auto 69.7 % (50-75); Platelet Count 142 X10^3/uL (150-400); Red Cell Distribution Width 14.9 % (11.6-14.8); White Blood Cell Count 6.5 X10^3/uL (4.5-11.0)
[2024-06-04 06:13] LABS: BUN Creatinine Ratio 41.4 (6-22); Blood Urea Nitrogen 24 mg/dL (7-17); Calcium 9.9 mg/dL (8.4-10.2); Carbon Dioxide 27 mmol/L (22-32); Chloride 96 mmol/L (98-107); Estimated Glomerular Filt Rate > 60 mL/min (>60); Glucose 183 mg/dL (80-110); HEMOLYSIS < 15 (0-50); Sodium 132 mmol/L (137-145)
[2024-06-04] MEDS: ONDANSETRON 4 MG/2 ML INJ IV ×2 (06:28→18:58)
[2024-06-04] MEDS: INSULIN LISPRO 100 UNIT/ML 3ML VIAL SUBCUT ×3 (09:04→17:33)
[2024-06-04] MEDS: ACETAMINOPHEN 325 MG TABLET 650 MG PO (09:05)
[2024-06-04] MEDS: PANTOPRAZOLE 40 MG VIAL IV ×2 (10:48→20:10)
[2024-06-04] MEDS: TRIAMTERENE/HCTZ 37.5/25 CAPSULE 1 CAP PO (10:49)
[2024-06-04] MEDS: POTASSIUM CHLORIDE 10 MEQ TAB 40 MEQ PO (10:49)
[2024-06-04] MEDS: DOCUSATE 100 MG CAPSULE PO (10:49)
--- NOTE | 2024-06-04 11:50 | PT-IP ANOTE ---
checked on pt this morning and refused PT. stated that she is tired right now. willing to try in the afternoon.
--- NOTE | 2024-06-04 12:59 | PM.PN.1 ---
Subjective Subjective Date Patient Seen: 06/04/24 Interval history: No flatus. She did vomit this morning. Minimal appetite. Exam Vital Signs (past 8 hours): - 06/04/24 08:00 06/04/24 12:00 Temperature 97.4 F L 96.6 F L Pulse Rate 109 H 101 H Respiratory Rate 14 16 Blood Pressure 171/94 H 173/80 H Pulse Oximetry 95 95 Oxygen Flow Rate 0 0 Oxygen Delivery Method Room Air Oxygen Flow Rate 0 Narrative Exam Narrative: Abdomen is soft Incision clean dry and intact Objective Labs 06/04/24 05:23 06/04/24 05:23 Labs: Laboratory Results - last 24 hr 06/04/24 05:23 WBC 6.5 RBC 4.30 Hgb 14.0 Hct 40.4 MCV 94.0 MCH 32.6 MCHC 34.7 RDW 14.9 H Plt Count 142 L Neut % (Auto) 69.7 Lymph % (Auto) 22.2 L [place] % (Auto) 7.7 Eos % (Auto) 0.1 L Baso % (Auto) 0.3 Neut # (Auto) 4500 Lymph # (Auto) 1400 [place] # (Auto) 500 Eos # (Auto) 0 Baso # (Auto) 0 Sodium 132 L Potassium 4.0 Chloride 96 L Carbon Dioxide 27 BUN 24 H Creatinine 0.58 Estimated GFR > 60 BUN/Creatinine Ratio 41.4 H Glucose 183 H Calcium 9.9 PFSH Medical History History of Mohs micrographic surgery for skin cancer (03/03/19) History of COVID-19 (2021) Thrombocytopenia Idiopathic thrombocytopenic purpura (ITP) Skin cancer Bilateral knee pain Arthritis Hx gestational diabetes Diverticulosis HLD (hyperlipidemia) HTN (hypertension) Ganglion cyst of dorsum of right wrist Diabetes Surgical History Hx of colonoscopy History of colon resection (09/24/20) Hx of dilation and curettage Hx of tonsillectomy Hx of arthroscopy of right knee (10/06/13) 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) Hx of right breast biopsy (1998) Hx of rotator cuff surgery (10/09/11) History of bunionectomy Hx of section Family History Father Heart disease Mother Diabetes mellitus Sister Diabetes mellitus Brother Cancer Social History marital status: household members: spouse occupational status: previously employed Smoking Status: Never smoker alcohol intake: never Assessment & Plan Assessment and plan (1) Colon neoplasm: Status: Acute Plan Make NPO and restart IV fluids Time-Based Coding :: [TOTAL MINUTES] spent with patient and on the chart (including review of chart, obtaining history, exam, reviewing outside data, placing orders, documenting exam and treatment plan, and counseling patient) on [DATE].
[2024-06-04] MEDS: LACTATED RINGERS 1,000 ML 100 ML IV ×2 (13:01→22:40)
[2024-06-04] MEDS: ENOXAPARIN 40 MG/0.4 ML SYRINGE SUBCUT (14:23)
--- NOTE | 2024-06-04 14:34 | PT-IP ANOTE ---
checked on pt this afternoon and pt continues to refuse. stated that she is just tired today and does not want to do PT.
--- NOTE | 2024-06-04 15:19 | CM.DPNOTE ---
DCP Cont Reviewed chart. Patient discussed in multidisciplinary rounds. Patient is not tolerating a solid diet, N/V. If patient continues to not tolerate anything by mouth, would benefit from additional conversation about goals of care. Plan remains discharge home w/supportive family w/close outpatient follow up. Patient/family may decide on referral to hospice before discharge, thus far have not wanted this. CM team following clinical course closely. DEVONTE
[2024-06-04] MEDS: INSULIN GLARGINE 100 UNIT/ML 3ML PEN SUBCUT (20:09)
[2024-06-04] MEDS: LORazepam 2 MG/ML INJ 0.5 MG IV (22:40)
[2024-06-05 04:00] VITALS: BP 176/94; PULSE 98; RESP 16; TEMP 36.6; O2SAT 96
[2024-06-05 08:00] VITALS: BP 157/92; PULSE 110; RESP 16; TEMP 36.3; O2SAT 96
[2024-06-05] MEDS: ONDANSETRON 4 MG/2 ML INJ IV ×2 (08:12→16:33)
--- NOTE | 2024-06-05 10:09 | PM.PN.1 ---
Subjective Subjective Date Patient Seen: 06/05/24 Time Patient Seen: 10:09 Interval history: Vomited again last night but she feels slightly better this morning and did have a recent bowel movement No real passage of flatus however Exam Vital Signs (past 8 hours): - 06/05/24 04:00 06/05/24 08:00 Temperature 97.8 F Pulse Rate 98 H Respiratory Rate 16 Blood Pressure 176/94 H Pulse Oximetry 96 Oxygen Delivery Method Room Air Oxygen Flow Rate 0 Oxygen Delivery Method Room Air Oxygen Flow Rate 0 Const General: No acute distress Objective Labs 06/04/24 05:23 06/04/24 05:23 [facility] Medical History History of Mohs micrographic surgery for skin cancer (03/03/19) History of COVID-19 (2021) Thrombocytopenia Idiopathic thrombocytopenic purpura (ITP) Skin cancer Bilateral knee pain Arthritis Hx gestational diabetes Diverticulosis HLD (hyperlipidemia) HTN (hypertension) Ganglion cyst of dorsum of right wrist Diabetes Surgical History Hx of colonoscopy History of colon resection (09/24/20) Hx of dilation and curettage Hx of tonsillectomy Hx of arthroscopy of right knee (10/06/13) 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) Hx of right breast biopsy (1998) Hx of rotator cuff surgery (10/09/11) History of bunionectomy Hx of section Family History Father Heart disease Mother Diabetes mellitus Sister Diabetes mellitus Brother Cancer Social History marital status: household members: spouse occupational status: previously employed Smoking Status: Never smoker alcohol intake: never Assessment & Plan Assessment and plan (1) Colon neoplasm: Status: Acute Plan Resume clear liquids and await flatus Time-Based Coding :: [TOTAL MINUTES] spent with patient and on the chart (including review of chart, obtaining history, exam, reviewing outside data, placing orders, documenting exam and treatment plan, and counseling patient) on [DATE].
[2024-06-05] MEDS: PANTOPRAZOLE 40 MG VIAL IV ×2 (10:13→21:00)
[2024-06-05] MEDS: SODIUM CHLORIDE 0.9% FLUSH 10 ML IV (10:13)
[2024-06-05] MEDS: METOCLOPRAMIDE 10 MG/2 ML INJ 5 MG IV ×2 (10:13→18:04)
[2024-06-05] MEDS: ENOXAPARIN 40 MG/0.4 ML SYRINGE SUBCUT (10:13)
[2024-06-05] MEDS: TRIAMTERENE/HCTZ 37.5/25 CAPSULE 1 CAP PO (10:14)
[2024-06-05] MEDS: LACTATED RINGERS 1,000 ML 100 ML IV ×2 (10:14→20:06)
--- NOTE | 2024-06-05 11:33 | PT.IPTN ---
Current Diagnoses Neoplasm of unspecified behavior of digestive system (06/01/24) Polyp of colon (06/01/24) Surgery Performed Operation Date: 06/01/24 07:45 Actual Procedures p Open colectomy with liver biopsy - Aaron Moctezuma MD Physical Therapy Treatment Note M2 PT-IP Current Condition Start: 06/01/24 17:43 Freq: NEEDED Status: Active Protocol: Document 06/01/24 17:02 AB (Rec: 06/01/24 18:05 AB [id number]) Physical Therapy Current Condition Current Condition Evaluation Date 06/01/24 Treatment Diagnosis colon CA with mets; s/p colectomy; difficulty in walking Onset Date 06/01/24 M3 PT-IP Subjective Start: 06/01/24 17:43 Freq: NEEDED Status: Active Protocol: Document 06/05/24 11:08 KS (Rec: 06/05/24 12:30 KS [id number]) Subjective Physical Therapy Visit Type Type Treatment Note Visit Start Time 11:08 Visit Stop Time 11:33 Number of [employer] Visits 3 Physical Therapy Visit Comments Patient Comments Pts family present during treatment. Therapy Pain Assessment Pain When Pain Assessed At Rest Pain Present Pain Present Denied Pain M4 PT-IP Mobility and Gait Start: 06/01/24 17:43 Freq: NEEDED Status: Active Protocol: Document 06/05/24 11:08 KS (Rec: 06/05/24 12:30 KS [id number]) PT-Bed Mobility Assessment Rolling Type of Rolling Log Rolling,Roll to Right Level of Assist Minimal Assistance Supine to Sit Supine to Sit Minimal Assistance,1 Person Assistance Scooting Scooting to Edge of Bed Standby Assistance PT-Transfer Assessment Sit to and From Stand Sit to and from Stand Standby Assistance,Use of Upper Extremities Equipment Transfer Assistive Device Gait Belt,Front Wheeled Walker Orthotic/Prosthetic Devices or Brace: Yes Transfers Transfer Destination Bed Transfer Technique ambulated Transfer Ability Level of Assist Contact Guard Assistance, Minimal Assistance,1 Person Assistance,Use of Upper Extremities Comments Mobility Comments Pt in bed upon arrival, needs min A for logroll and sup<>Sit , SBA for sit<>Stand w/ FWW as well as ambulation. Pt was able to ambuate ~250 ft w/ FWW SBA. he ambulates slowly and cautiously, but no LOB and demonstrated good use of FWW. Pt reported fatigue upon return to room and requested to go back to bed. Min A for sit<>sup for LE elevation. Pt left in bed w/ all needs in reach. Gait Assessment Gait Gait Assistance Required: Standby Assistance Distance (Feet) 250 Able to Maintain Weight Bearing Status Yes During Gait Assistive Devices Assistive Device Gait Belt,Front Wheeled Walker Orthotic/Prosthetic Devices or Brace: Yes Gait Deviations General Gait Pattern Decreased Stride Length, Decreased Feet Clearance,Step- to Gait Factors Limiting Gait Function Factors Limiting Gait Function Decreased Activity Tolerance, Decreased Strength,Limited Range of Motion,Pain,Poor Balance,Poor Safety Awareness Comments Gait Comments see mobility. PT-Balance Assessment Sitting Balance and Reactions Static Sitting Balance Ability Normal Dynamic Sitting Balance Ability Good Standing Balance and Reactions Static Standing Balance Ability Good Dynamic Standing Balance Ability Fair Device Used FWW M5 PT-IP Objective Assessments Start: 06/01/24 17:43 Freq: NEEDED Status: Active Protocol: Document 06/01/24 17:02 AB (Rec: 06/01/24 18:05 AB [id number]) Orientation Orientation/Cognition Level of Alertness Alert Orientation Name,Place,Situation Language Function Ability No Deficits Noted Safety Awareness Decreased Safety Awareness Memory Description Short Term Impaired Gross Range of Motion Lower Extremity ROM Assessment Within Functional Limits Strength Lower Extremity Strength Assessment Within Functional Limits Coordination Assessment Gross Coordination Gross Coordination WNL Sensation Assessment Sensation Gross Sensation WNL Muscle Tone Muscle Tone WNL Yes M6 PT-IP Treatment Start: 06/01/24 17:43 Freq: NEEDED Status: Active Protocol: Document 06/05/24 11:08 KS (Rec: 06/05/24 12:30 MA [id number]) Physical Therapy Treatment Education Education Provided Precautions,Safety M7 PT-IP Assessment and Plan Start: 06/01/24 17:43 Freq: NEEDED Status: Active Protocol: Document 06/05/24 11:08 KS (Rec: 06/05/24 12:30 MA [id number]) PT Summary Assessment and Plan Potential Rehabilitation Potential Fair Summary Impairments Pain,ROM,Strength,Balance, Coordination,Sensation,Tone, Cognition,Bed Mobility, Transfers,Gait,Activity Tolerance Progress Towards Goals Progressing Toward Goals Assessment Summary Pt continues to do well with mobility and ambulation using FWW. Min A for bed mobility at times, but SBA for all else. Good use of FWW, no LOB. Does report fatigue following ~250 ft ambulation w/ FWW. PT continues to recommend home with assist. Goals Bed Mobility Goal Independent Transfer Goal Independent,Front Wheeled Walker Gait Goal Independent,Front Wheel Walker Gait Distance 200 Other Goals improve transfers and ambulation using LRAD/without AD 250 ft mod I up/down 3 steps R rail ascending SBA Days to Meet Goals 10 Frequency of Treatment Frequency Of Treatment Once a Day Treatment Plan Physical Therapy Treatment Plan Bed Mobility Training,Transfer Training,Gait Training, Therapeutic Exercise,Balance Retraining,Post Op Education, Discharge Planning,Hot or Cold Pack,Neuromuscular Re-ed, Coordination Retraining,Manual Therapy Precautions Abdominal Surgery Precautions Log Roll,Lifting Restrictions, Gait Belt above Incisional Area Recommendations To Nursing Amount of Assist Needed 1 Person Assist Discharge Recommendations PT Discharge Recommendations Home with Assistance Equipment Needed for Home Before FWW Discharge Transportation Needs at Discharge Private Vehicle
[2024-06-05 12:00] VITALS: BP 168/85; PULSE 111; RESP 22; TEMP 36.3; O2SAT 96
--- NOTE | 2024-06-05 12:16 | CM.DPC ---
DCP Cont. Reviewed EMR and team rounds for status updates. Per Dr. Galloway, pt will continue clear liquids, advance diet to solids tomorrow, await for ability to flatus. Will continue to monitor for Home Health need at the time of d/c home.
[2024-06-05] MEDS: INSULIN LISPRO 100 UNIT/ML 3ML VIAL SUBCUT (12:45)
[2024-06-05 16:00] VITALS: BP 151/67; PULSE 102; RESP 24; TEMP 36.6; O2SAT 95
[2024-06-05] MEDS: ONDANSETRON 4 MG ODT SL (19:53)
[2024-06-05 20:00] VITALS: BP 176/91; PULSE 109; RESP 18; TEMP 37; O2SAT 96
[2024-06-05] MEDS: INSULIN GLARGINE 100 UNIT/ML 3ML PEN SUBCUT (21:01)
[2024-06-05] MEDS: MELATONIN 3 MG TABLET 9 MG PO (23:33)
[2024-06-05 23:47] VITALS: BP 164/90; PULSE 109; RESP 18; TEMP 36.9; O2SAT 95
--- NOTE | 2024-06-06 00:43 | PC.NURSE ---
Patient is alert and oriented except did not know day of month or day of week. Breath sounds diminished but CTA with RA sat of 96%. HRR but has had persistently elevated BP and tachycardia and at time of assessment BP was 176/91 with HR of 109. 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 BT are hypoactive and denies flatus; did have loose, watery stool documented on previous shift. Is voiding on toilet and denied any dysuria. Is able to turn herself in bed. Is getting out of bed with walker and 1 assist. Incision to abdomen is dermabonded, well approximated with surrounding bruising. Agreeable to having bilateral calf SCD's applied. Fall risk score is high and bed alarm is activated. Spouse rooming in.
[2024-06-06] MEDS: LORazepam 2 MG/ML INJ 0.5 MG IV (03:02)
[2024-06-06] MEDS: LACTATED RINGERS 1,000 ML 100 ML IV (06:20)
[2024-06-06 07:00] VITALS: BP 156/84; PULSE 111; RESP 20; TEMP 36.6; O2SAT 95
[2024-06-06] MEDS: DOCUSATE 100 MG CAPSULE PO (09:06)
[2024-06-06] MEDS: TRIAMTERENE/HCTZ 37.5/25 CAPSULE 1 CAP PO (09:06)
[2024-06-06] MEDS: ENOXAPARIN 40 MG/0.4 ML SYRINGE SUBCUT (09:06)
[2024-06-06] MEDS: SODIUM CHLORIDE 0.9% FLUSH 10 ML IV (09:07)
[2024-06-06] MEDS: PANTOPRAZOLE 40 MG VIAL IV (09:07)
[2024-06-06] MEDS: INSULIN LISPRO 100 UNIT/ML 3ML VIAL SUBCUT ×2 (09:08→12:28)
--- NOTE | 2024-06-06 09:56 | PT.IPTN ---
Current Diagnoses Neoplasm of unspecified behavior of digestive system (06/01/24) Polyp of colon (06/01/24) Surgery Performed Operation Date: 06/01/24 07:45 Actual Procedures p Open colectomy with liver biopsy - Aaron Moctezuma MD Physical Therapy Treatment Note M2 PT-IP Current Condition Start: 06/01/24 17:43 Freq: NEEDED Status: Active Protocol: Document 06/01/24 17:02 AB (Rec: 06/01/24 18:05 AB [id number]) Physical Therapy Current Condition Current Condition Evaluation Date 06/01/24 Treatment Diagnosis colon CA with mets; s/p colectomy; difficulty in walking Onset Date 06/01/24 M3 PT-IP Subjective Start: 06/01/24 17:43 Freq: NEEDED Status: Active Protocol: Document 06/06/24 09:16 LRN (Rec: 06/06/24 09:53 LRN [id number]) Subjective Physical Therapy Visit Type Type Treatment Note Visit Start Time 09:16 Visit Stop Time 09:40 Notes Spouse present throughout therapy. Physical Therapy Visit Comments Patient Comments Pt reports no abdominal pain. Therapy Pain Assessment Pain Present Pain Present Denied Pain M4 PT-IP Mobility and Gait Start: 06/01/24 17:43 Freq: NEEDED Status: Active Protocol: Document 06/06/24 09:16 LRN (Rec: 06/06/24 09:53 LRN [id number]) PT-Bed Mobility Assessment Rolling Level of Assist Independent Supine to Sit Supine to Sit Standby Assistance Sit to Supine Sit to Supine Standby Assistance Scooting Scooting to Edge of Bed Independent PT-Transfer Assessment Sit to and From Stand Sit to and from Stand Standby Assistance Equipment Transfer Assistive Device Front Wheeled Walker Transfers Transfer Destination Toilet Transfer Technique Walked to toilet Transfer Ability Level of Assist Independent Comments Mobility Comments Pt reported having a BM Gait Assessment Gait Gait Assistance Required: Independent Distance (Feet) 200 Able to Maintain Weight Bearing Status Yes During Gait Assistive Devices Assistive Device Gait Belt,Front Wheeled Walker Gait Deviations General Gait Pattern Decreased Stride Length, Decreased Feet Clearance Factors Limiting Gait Function Factors Limiting Gait Function Decreased Activity Tolerance, Decreased Strength,Limited Range of Motion Stair Climbing Assessment Evaluation Level of Assist On Stairs Standby Assistance Devices Stair Climbing Assistive Devices Right Railing Technique/Endurance Stair Climbing Direction Ascend and Descend Stair Climbing Technique Step Over Step Number of Steps Climbed 3 Comments Stair Climbing Comments Pt able to perform independently with v cuing as to use of SPC in place of one side of walker for ascend/ descend stairs w/o difficulty. PT-Balance Assessment Sitting Balance and Reactions Static Sitting Balance Ability Normal Dynamic Sitting Balance Ability Good Standing Balance and Reactions Static Standing Balance Ability Good Dynamic Standing Balance Ability Good Device Used FWW M5 PT-IP Objective Assessments Start: 06/01/24 17:43 Freq: NEEDED Status: Active Protocol: Document 06/06/24 09:16 LRN (Rec: 06/06/24 09:56 LRN [id number]) Orientation Orientation/Cognition Level of Alertness Alert Orientation Name,Place,Situation Language Function Ability No Deficits Noted Safety Awareness Decreased Safety Awareness Memory Description Short Term Impaired Gross Range of Motion Lower Extremity ROM Assessment Within Functional Limits Strength Lower Extremity Strength Assessment Within Functional Limits Coordination Assessment Gross Coordination Gross Coordination WNL M6 PT-IP Treatment Start: 06/01/24 17:43 Freq: NEEDED Status: Active Protocol: Document 06/06/24 09:16 LRN (Rec: 06/06/24 09:53 LRN [id number]) Physical Therapy Treatment Education Education Provided Precautions,Safety Other Treatments Other Treatment Performed Pt shows good understanding of use of FWW for walking on flat surface and with single side use on stairs. She was SBA with all activities due to assist of IV pole. Reviewed with pt use of pillow over abdomen to protect her incision with transfers and log roll technique training for getting in/out of recliner chair that she plans to sleep in. Pt shows good endurance and transfer ability and would be appropriate for DC home with assist of very attentive spouse. M7 PT-IP Assessment and Plan Start: 06/01/24 17:43 Freq: NEEDED Status: Active Protocol: Document 06/06/24 09:16 LRN (Rec: 06/06/24 09:53 LRN [id number]) PT Summary Assessment and Plan Potential Rehabilitation Potential Good Status of Condition at Evaluation Evolving Summary Impairments ROM,Strength,Balance, Coordination,Sensation,Bed Mobility,Transfers,Gait, Activity Tolerance Progress Towards Goals Progressing Toward Goals Assessment Summary Pt continues to do well with mobility and ambulation using FWW. Min A for bed mobility at times, but SBA for all else. Good use of FWW, no LOB. Does report fatigue following ~250 ft ambulation w/ FWW. PT continues to recommend home with assist. Goals Bed Mobility Goal Independent Transfer Goal Independent,Front Wheeled Walker Gait Goal Independent,Front Wheel Walker Gait Distance 200 Other Goals improve transfers and ambulation using LRAD/without AD 250 ft mod I up/down 3 steps R rail ascending SBA Days to Meet Goals 10 Frequency of Treatment Frequency Of Treatment Once a Day Treatment Plan Physical Therapy Treatment Plan Bed Mobility Training,Transfer Training,Gait Training, Therapeutic Exercise,Post Op Education,Discharge Planning, Hot or Cold Pack,Neuromuscular Re-ed,Coordination Retraining Precautions Abdominal Surgery Precautions Log Roll,Lifting Restrictions, Gait Belt above Incisional Area Recommendations To Nursing Amount of Assist Needed 1 Person Assist Discharge Recommendations PT Discharge Recommendations Home with Assistance Equipment Needed for Home Before FWW Discharge Transportation Needs at Discharge Private Vehicle
[2024-06-06 11:00] VITALS: BP 166/78; PULSE 110; RESP 16; TEMP 36.2; O2SAT 95
--- NOTE | 2024-06-06 11:00 | PC.NURSE ---
Patient up and ambulated with physical therapy this morning, she was given a bed bath and is visiting with her . Denies nausea, patient is quiet this morning and does seem somewhat withdrawn. Pleasant and cooperative with all care. Patient had a bm this am.
--- NOTE | 2024-06-06 12:35 | P.PN_ITS ---
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 Exam Vital Signs (past 8 hours): - 06/06/24 07:00 06/06/24 11:00 Temperature 97.8 F 97.2 F L Pulse Rate 111 H 110 H Respiratory Rate 20 16 Blood Pressure 156/84 H 166/78 H Pulse Oximetry 95 95 Oxygen Flow Rate 0 0 Oxygen Delivery Method Room Air Oxygen Flow Rate 0 Const General: No acute distress Resp Effort & Inspection: normal respiratory effort Objective Labs 06/04/24 05:23 06/04/24 05:23 PFS Medical History History of Mohs micrographic surgery for skin cancer (03/03/19) History of COVID-19 (2021) Thrombocytopenia Idiopathic thrombocytopenic purpura (ITP) Skin cancer Bilateral knee pain Arthritis Hx gestational diabetes Diverticulosis HLD (hyperlipidemia) HTN (hypertension) Ganglion cyst of dorsum of right wrist Diabetes Surgical History Hx of colonoscopy History of colon resection (09/24/20) Hx of dilation and curettage Hx of tonsillectomy Hx of arthroscopy of right knee (10/06/13) 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) Hx of right breast biopsy (1998) Hx of rotator cuff surgery (10/09/11) History of bunionectomy Hx of section Family History Father Heart disease Mother Diabetes mellitus Sister Diabetes mellitus Brother Cancer Social History marital status: household members: spouse occupational status: previously employed Smoking Status: Never smoker alcohol intake: never Assessment & Plan Assessment and plan (1) Colon neoplasm: Status: Acute Plan Advance diet Discharge once she is tolerating diet Time-Based Coding :: [TOTAL MINUTES] spent with patient and on the chart (including review of chart, obtaining history, exam, reviewing outside data, placing orders, documenting exam and treatment plan, and counseling patient) on [DATE].
--- NOTE | 2024-06-06 15:56 | CM.DPNOTE ---
DCP Note ORCHARD PRUNER reviewed EMR. Per chart review, pt to discharge home. Pt left prior to being seen by this ORCHARD PRUNER. Recent PT note rec home with assistance. P: pt discharged home today with spouse and no CM needs. CM team will follow as needed CHELSEA Evangelista
== END 2024-06-06 14:49 | disposition home or self-care (01) | DRG 330 ==
PROVIDERS: Internal Medicine; Admitting Provider Surgery; PCP Family Medicine; Referring Provider Surgery; Visit Provider Surgery
PROC: 0FB00ZX Excision of Liver, Open Approach, Diagnostic (ICD-10-PCS; CPT 44140; principal; 2024-06-01 07:45)
DX: C18.2 Malignant neoplasm of ascending colon (principal); C78.7 Secondary malignant neoplasm of liver and intrahepatic bile duct; D69.3 Immune thrombocytopenic purpura; E11.65 Type 2 diabetes mellitus with hyperglycemia; D69.6 Thrombocytopenia, unspecified; Z79.4 Long term (current) use of insulin
CPT/HCPCS: 36415; 36430; 71260; 74177; 80048; 82378; 82962; 83036; 85025; 86850; 86900; 86901; 97116; 97162; 97166; 97530; 97535; A9270; C9290; J0136; J1650; J1815; J2060; J2405; J2470; J2543; J2765; P9035; Q9967